=== PATIENT | female | born 1985 | race Caucasian/White ===

== ENCOUNTER → 2017-01-20 | Outpatient (CLI) | payer MEDICAID, OTHER ==
[2017-01-20 10:13] LABS: CH 31.9; CHCM 34.5; HCT 44.6 % (34.0-46.0); HGB 14.8 gm/dL (11.4-16.0); MCH 30.9 pg (25.0-35.0); MCHC 33.2 g/dL (31.0-37.0); Mean Platelet Volume 8.4; RDW 12.7 % (11.5-15.5); WBC 5.7 k/uL (3.8-10.6)
[2017-01-20 10:17] LABS: ALT 67 U/L (9-52); AST 45 U/L (14-36); Alkaline Phosphatase 53 U/L (38-126); Amylase 70 U/L (30-110); Anion Gap 9 mmol/L; Blood Urea Nitrogen 12 mg/dL (7-17); Calcium 9.3 mg/dL (8.4-10.2); Carbon Dioxide 28 mmol/L (22-30); Chloride 104 mmol/L (98-107); Cholesterol 224 mg/dL (<200); Glucose 87 mg/dL (74-99); HDL Cholesterol 64 mg/dL (40-60); Non-African American GFR(MDRD) >60 (>60 ml/min/1.73 sqM); Potassium 4.5 mmol/L (3.5-5.1); Sodium 141 mmol/L (137-145); Total Bilirubin 0.4 mg/dL (0.2-1.3); Total Protein 7.4 g/dL (6.3-8.2); Triglycerides 90 mg/dL (<150)
[2017-01-21 14:43] LABS: Gliadin AB IgA, Deaminated 7 UNITS (<20); Gliadin AB IgG, Deaminated 3 UNITS (<20)
== END ==
LOC: LABWHC1 08:51
PROVIDERS: ATTEND Physician Assistant
DX: R11.0 Nausea (principal); R19.7 Diarrhea, unspecified; E03.9 Hypothyroidism, unspecified; R53.83 Other fatigue
CPT/HCPCS: 36415; 80053; 80061; 82150; 83516; 83690; 84439; 84443; 85027

== ENCOUNTER → 2017-02-22 | Outpatient (CLI) | payer MEDICAID, OTHER ==
--- NOTE | 2017-02-22 14:10 | CT ---
EXAMINATION TYPE: CT abdomen pelvis w con DATE OF EXAM: 02/22/2017 2:04 PM COMPARISON: NONE HISTORY: Abdomen pain and bloating CT DLP: 524.2 mGycm CONTRAST: CT scan of the abdomen and pelvis is performed with Oral Contrast and with IV Contrast, patient injec talat with 100 mL of Omnipaque 300. FINDINGS: LUNG BASES-: No visible nodule. No infiltrate. LIVER/GB: No calcified gallstones. No space occupying hepatic lesion. Biliary tree is of normal ca liber. PANCREAS: No inflammation. No distinct mass. SPLEEN: No splenic enlargement. No lesion seen. ADRENALS: No nodule. No thickening. KIDNEYS/BLADDER: No hydronephrosis. 2 nonobstructing calculi are seen within the lower pole of the l eft kidney measuring 4 and 3 mm respectively. No right-sided calculi are evident. No disctinct renal mass. Urinary bladder grossly unremarkable. BOWEL: Normal appendix. Normal bowel caliber. No inflammation. GENITAL ORGANS: No gross abnormality. LYMPH NODES: No greater than 1cm abdominal or pelvic lymph nodes are appreciated. AORTA: No significant abnormality. OSSEOUS STRUCTURES: No significant abnormality is seen. OTHER: No significant additional abnormality is seen. IMPRESSION: 1. Mild fecal stasis. 2. Nonobstructing left-sided nephrolithiasis.
== END | disposition home or self-care (01) ==
LOC: RADCTMAIN 11:45
PROVIDERS: ATTEND Family Medicine
DX: N20.0 Calculus of kidney (principal)
CPT/HCPCS: 74177; Q9967

== ENCOUNTER → 2017-03-17 | Outpatient (CLI) | payer MEDICAID, OTHER ==
[2017-03-17 12:17] LABS: ALT 73 U/L (9-52); AST 54 U/L (14-36); Alkaline Phosphatase 56 U/L (38-126); Anion Gap 9 mmol/L; Blood Urea Nitrogen 13 mg/dL (7-17); Calcium 9.3 mg/dL (8.4-10.2); Carbon Dioxide 27 mmol/L (22-30); Chloride 103 mmol/L (98-107); Glucose 78 mg/dL (74-99); Potassium 4.1 mmol/L (3.5-5.1); Sodium 139 mmol/L (137-145); Total Bilirubin 0.5 mg/dL (0.2-1.3); Total Protein 7.3 g/dL (6.3-8.2)
[2017-03-17 12:18] LABS: Non-African American GFR(MDRD) >60 (>60 ml/min/1.73 sqM)
[2017-03-17 17:37] LABS: Clam IgE <0.10 kU/L; Peanut IgE <0.10 kU/L; Scallop IgE <0.10 kU/L; Soybean IgE <0.10 kU/L
[2017-03-18 14:19] LABS: Alternaria alternata IgE <0.35 kU/L (<0.35); Asperg. fumagatus IgE <0.35 kU/L (<0.35); Asperg. fumagatus IgE Class CLASS 0; Birch(Com.Silvr) IgE Class CLASS 0; Cat Epith & Dander IgE <0.35 kU/L (<0.35); Cat Epith & Dander IgE Class CLASS 0; Clad herbarum IgE <0.35 kU/L (<0.35); Clad herbarum IgE Class CLASS 0; Common Ragweed IgE Class CLASS 0; Dermato. Pteronyssinus Class CLASS 0; Dermato. Pteronyssinus IgE <0.35 kU/L (<0.35); Dermato. farinae IgE <0.35 kU/L (<0.35); Dermato. farinae IgE Class CLASS 0; IgE (Allergen) 6.9 IU/mL (<114.0); Maple (Box Elder) IgE <0.35 kU/L (<0.35); Maple (Box Elder) IgE Class CLASS 0; Mountain Cedar IgE <0.35 kU/L (<0.35); Mountain Cedar IgE Class CLASS 0; Mouse Urine IgE Class CLASS 0; Mouse Urine Proteins,IgE <0.35 kU/L (<0.35); Mulberry IgE Class CLASS 0; Nettle IgE <0.35 kU/L (<0.35); Nettle IgE Class CLASS 0; Oak IgE <0.35 kU/L (<0.35); Penicillium notatum IgE Class CLASS 0; Rough Marshelder IgE <0.35 kU/L (<0.35); Rough Marshelder IgE Class CLASS 0; Timothy Grass IgE <0.35 kU/L (<0.35); Timothy Grass IgE Class CLASS 0; White Ash IgE Class CLASS 0
== END | disposition home or self-care (01) ==
LOC: LABWHC1 11:19
PROVIDERS: ATTEND Physician Assistant
DX: J30.9 Allergic rhinitis, unspecified (principal); R94.5 Abnormal results of liver function studies; J32.9 Chronic sinusitis, unspecified
CPT/HCPCS: 36415; 80053; 82785; 86003

== ENCOUNTER → 2017-03-25 | Outpatient (CLI) | payer MEDICAID, OTHER ==
[2017-03-25 14:59] LABS: Hepatitis B Surface Ag Index 0.06; Hepatitis C Virus IgG Ab Negative (Negative); Hepatitis C Virus IgG Index 0.03
[2017-03-25 15:00] LABS: Hepatitis B Core IgM Index 0.02
== END | disposition home or self-care (01) ==
LOC: LABWHC1 08:50
PROVIDERS: ATTEND Physician Assistant
DX: R19.7 Diarrhea, unspecified (principal); R10.9 Unspecified abdominal pain; R14.0 Abdominal distension (gaseous); R79.89 Other specified abnormal findings of blood chemistry
CPT/HCPCS: 36415; 80074; 82378; 86301

== ENCOUNTER 2017-04-14 07:31 | Day surgery (SDC) | payer MEDICAID, OTHER ==
[2017-04-12 11:32] VITALS: BMI 24.2
[~2017-04-14 07:31] MED LIST: LACTATED RINGERS 1,000 ML IV SCH
[2017-04-14 08:03] VITALS: RESP 16; TEMP 97
[2017-04-14] MEDS ORDERED: LIDOCAINE 1% 20 ML VIAL (10MG/ML) FOR IV START INTRADERMA ONE (08:14)
[2017-04-14 08:17] LABS: Glucose,Whole Blood 86 mg/dL (75-99)
[2017-04-14] MEDS ORDERED: ONDANSETRON 4 MG/2 ML VIAL IVP ONE (08:17)
[2017-04-14] MEDS ORDERED: PROPOFOL 10 MG/ML 20 ML VIAL IV ONE (08:19)
[2017-04-14] MEDS ORDERED: LIDOCAINE 1% INJ 10MG/ML (20 ML MDV) ONE (08:19)
--- NOTE | 2017-04-14 08:44 | P.OP ---
Date of Procedure: 04/14/17 Preoperative Diagnosis: Change in bowel habits Postoperative Diagnosis: Fairly normal colonoscopy. Possible irritable bowel syndrome. Procedure(s) Performed: Implants: Anesthesia: MAC Surgeon: Navjot Manning Estimated Blood Loss (ml): 0 Pathology: none sent Condition: stable Disposition: same day Indications for Procedure: Change in bowel habits with the irregular stools with the constipation followed by some loose stools. Right upper quadrant pain. Ultrasound and HIDA scan were negative. Direct visualization of the colon was recommended and informed consent was obtained. Operative Findings: Fairly normal colonoscopy. Description of Procedure: With the patient in the left lateral position rectal digital examination was normal there no palpable masses. The video colonoscope was inserted transanally and advanced all the way to the cecum which was entered and well visualized colon was a little tortuous. The mucosa were thoroughly examined. Findings fairly normal colonoscopy. No polyps neoplasms or any mucosal abnormalities were noted. Suspect patient has IBS. Recommendation high fiber diet. May benefit from a fiber supplement daily. Follow-up colonoscopy about 15 years or so since she has no high-risk factors for: Colon ca.
[2017-04-14 09:15] VITALS: BP 117/76; PULSE 50
== END 2017-04-14 09:18 | disposition home or self-care (01) ==
LOC: ORWHC2ENDO 07:31
PROVIDERS: ATTEND Surgery
DX: K59.00 Constipation, unspecified (principal); R10.11 Right upper quadrant pain; E07.9 Disorder of thyroid, unspecified; Q43.8 Other specified congenital malformations of intestine; Z79.899 Other long term (current) drug therapy
CPT/HCPCS: 81025; 45378; J2405; J2001; J2704

== ENCOUNTER → 2017-07-20 | Outpatient (CLI) | payer MEDICAID | END | disposition home or self-care (01) | LOC: LABWHC1 11:40 | PROVIDERS: ATTEND Obstetrics & Gynecology | DX: N92.6 Irregular menstruation, unspecified (principal) | CPT/HCPCS: 36415; 84702 ==

== ENCOUNTER → 2017-08-25 | Outpatient (CLI) | payer MEDICAID ==
[2017-08-25 12:22] LABS: CH 33.9; CHCM 34.7; HCT 42.7 % (34.0-46.0); HDW 2.52; HGB 14.4 gm/dL (11.4-16.0); MCH 33.1 pg (25.0-35.0); MCHC 33.7 g/dL (31.0-37.0); MCV 98.2 fL (80.0-100.0); RBC 4.34 m/uL (3.80-5.40); RDW 13.9 % (11.5-15.5); WBC 6.4 k/uL (3.8-10.6)
[2017-08-25 12:37] LABS: ALT 38 U/L (9-52); AST 32 U/L (14-36); Alkaline Phosphatase 60 U/L (38-126); Amylase 67 U/L (30-110); Anion Gap 11 mmol/L; Blood Urea Nitrogen 10 mg/dL (7-17); Calcium 9.5 mg/dL (8.4-10.2); Carbon Dioxide 25 mmol/L (22-30); Chloride 105 mmol/L (98-107); GGT 48 U/L (12-43); Glucose 91 mg/dL (74-99); Non-African American GFR(MDRD) >60 (>60 ml/min/1.73 sqM); Potassium 4.1 mmol/L (3.5-5.1); Sodium 141 mmol/L (137-145); Total Bilirubin 0.4 mg/dL (0.2-1.3); Total Protein 7.4 g/dL (6.3-8.2)
== END | disposition home or self-care (01) ==
LOC: LABWHC1 11:57
PROVIDERS: ATTEND Family Medicine
DX: R74.8 Abnormal levels of other serum enzymes (principal)
CPT/HCPCS: 36415; 80053; 82150; 82977; 84260; 84443; 84481; 85027

== ENCOUNTER → 2017-12-08 | Outpatient (CLI) | payer MEDICAID ==
[2017-12-08 15:47] LABS: HCT 35.1 % (34.0-46.0); MCH 31.3 pg (25.0-35.0); MCHC 34.2 g/dL (31.0-37.0); MCV 91.5 fL (80.0-100.0); Mean Platelet Volume 7.2; Platelet Count 217 k/uL (150-450); RBC 3.84 m/uL (3.80-5.40); RDW 13.1 % (11.5-15.5); WBC 9.6 k/uL (3.8-10.6)
[2017-12-08 15:49] LABS: Glucose 127 mg/dL (74-99)
[2017-12-08 16:05] LABS: T4, Free (Free Thyroxine) 0.94 ng/dL (0.78-2.19)
== END | disposition home or self-care (01) ==
LOC: LABWHC1 15:07
PROVIDERS: ATTEND Obstetrics & Gynecology
DX: Z34.81 Encounter for supervision of other normal pregnancy, first trimester (principal); Z3A.00 Weeks of gestation of pregnancy not specified
CPT/HCPCS: 36415; 82565; 82947; 84439; 84443; 85027; 86762; 86780; 86850; 86900; 86901; 87340

== ENCOUNTER → 2018-03-09 | Outpatient (CLI) | payer MEDICAID ==
[2018-03-09 10:11] LABS: HCT 30.7 % (34.0-46.0); HGB 10.5 gm/dL (11.4-16.0); MCH 32.3 pg (25.0-35.0); MCHC 34.3 g/dL (31.0-37.0); MCV 94.4 fL (80.0-100.0); Mean Platelet Volume 8.2; Platelet Count 231 k/uL (150-450); RBC 3.26 m/uL (3.80-5.40); RDW 14.5 % (11.5-15.5); WBC 8.5 k/uL (3.8-10.6)
== END ==
LOC: LABWHC1 08:41
PROVIDERS: ATTEND Obstetrics & Gynecology
DX: Z34.82 Encounter for supervision of other normal pregnancy, second trimester (principal)
CPT/HCPCS: 36415; 82950; 85027

== ENCOUNTER 2018-05-03 14:45 | Outpatient (CLI) | payer MEDICAID ==
[2018-05-03 16:02] LABS: Basophils % (A) 0 %; Eosinophils # (A) 0.1 k/uL (0-0.7); Eosinophils % (A) 2 %; HGB 11.4 gm/dL (11.4-16.0); Lymphocytes # (A) 1.1 k/uL (1.0-4.8); Lymphocytes % (A) 17 %; MCH 34.1 pg (25.0-35.0); MCHC 36.7 g/dL (31.0-37.0); MCV 93.1 fL (80.0-100.0); Mean Platelet Volume 8.9; Monocytes # (A) 0.4 k/uL (0-1.0); Monocytes % (A) 6 %; Neutrophils % (A) 74 %; Platelet Count 128 k/uL (150-450); RBC 3.33 m/uL (3.80-5.40); RDW 13.9 % (11.5-15.5); WBC 6.8 k/uL (3.8-10.6)
[2018-05-03 16:07] LABS: Amorphous Sediment,Urine Rare /hpf; Appearance,Urine Cloudy (Clear); Bacteria,Urine Occasional /hpf; Bilirubin,Urine Negative (Negative); Blood,Urine Trace (Negative); Color,Urine Light Yellow; Glucose,Urine (UA) Negative (Negative); Ketones,Urine Negative (Negative); Leukocyte Esterase,Urine Moderate (Negative); Mucus,Urine Rare /hpf; Nitrite,Urine Negative (Negative); Protein,Urine Negative (Negative); RBC,Urine 4 /hpf (0-5); Specific Gravity,Urine 1.006 (1.001-1.035); Squamous Epithelial Cell,Urine 4 /hpf (0-4); Urobilinogen,Urine <2.0 mg/dL (<2.0); WBC,Urine 8 /hpf (0-5)
[2018-05-03 16:11] LABS: Uric Acid 4.3 mg/dL (3.7-7.4)
[2018-05-03 16:13] LABS: Creatinine,Urine Random 42.9 mg/dL
[2018-05-03] MEDS ORDERED: LACTATED RINGERS 1,000 ML IV SCH (16:15)
[2018-05-03 16:25] LABS: INR 0.9 (<1.2)
[2018-05-03 16:26] LABS: Prothrombin Time 9.3 sec (9.0-12.0)
[2018-05-03 16:28] LABS: Partial Thromboplastin Time 21.6 sec (22.0-30.0)
[2018-05-03 17:18] VITALS: BP 135/84; PULSE 112; RESP 20; TEMP 98.3
[2018-05-03] MEDS ORDERED: MAGNESIUM SULFATE GM 6 GM in SODIUM CHLORIDE 0.9% 50 ML IVPB ONE (17:23)
[2018-05-03] MEDS ORDERED: BETAMET ACET-BETAMETH SOD PHOS 6 MG/ML VIAL IM SCH (17:30)
--- NOTE | 2018-05-03 17:32 | P.HPOB ---
History of Present Illness H&P Date: 05/03/18 Chief Complaint: headache 32 year old at 32 weeks with di/di twins presents to triage with headache and nausea. 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 In triage her BPs were 130-157/80-99. The labs that were abnormal were platelets 128 and P/C ratio of 512. I believe she has pre-eclampsia and will be transferring her to [facility] on a magnesium sulfate drip after I give her some betamethasone. Review of Systems All systems: negative Constitutional: Denies chills, Denies fever Eyes: denies blurred vision, denies pain Ears, nose, mouth and throat: Denies headache, Denies sore throat Cardiovascular: Denies chest pain, Denies shortness of breath Respiratory: Denies cough Gastrointestinal: Denies abdominal pain, Denies diarrhea, Denies nausea, Denies vomiting Genitourinary: Denies dysuria, Denies hematuria Musculoskeletal: Denies myalgias Integumentary: Denies pruritus, Denies rash Neurological: Denies numbness, Denies weakness Psychiatric: Denies anxiety, Denies depression Endocrine: Denies fatigue, Denies weight change Past Medical History Past Medical History: Thyroid Disorder History of Any Multi-Drug Resistant Organisms: None Reported Past Surgical History: No Surgical Hx Reported Additional Past Surgical History / Comment(s): rectal fissure repair, exploratory laparoscopic proc for endometriosis Past Anesthesia/Blood Transfusion Reactions: No Reported Reaction Additional Past Anesthesia/Blood Transfusion Reaction / Comment(s): no hx blood transfusion Smoking Status: Never smoker Past Drug Use History: None Reported - Past Family History Mother Family Medical History: No Reported History Father Family Medical History: No Reported History Medications and Allergies Home Medications Medication Instructions Recorded Confirmed Type Levothyroxine Sodium [Synthroid] 137 mcg PO QAM 06/06/16 05/03/18 History Cetirizine HCl [Zyrtec] 10 mg PO DAILY 04/12/17 05/03/18 History Fluticasone Nasal [place] [Flonase 1 spray EA NOSTRIL DAILY 04/12/17 05/03/18 History Nasal [place]] Montelukast Sodium [Singulair] 10 mg PO HS 04/12/17 05/03/18 History Vit 40/Iron/Folic/Dha 1 each PO DAILY 04/12/17 05/03/18 History [ Multivitamin-Dha Sfgl] Folic Acid-Vit B Complex-Vit C 1 cap PO DAILY 05/03/18 05/03/18 History [Nephrocaps] Ranitidine HCl [Zantac] 150 mg PO HS 05/03/18 05/03/18 History Allergies Allergy/AdvReac Type Severity Reaction Status Date / Time No Known Allergies Allergy Verified 04/14/17 07:52 Exam Osteopathic Statement: *. No significant issues noted on an osteopathic structural exam other than those noted in the History and Physical/Consult. - Vital Signs Vital signs: Vital Signs Temp Pulse Resp BP Pulse Ox 05/03/18 15:15 98.3 F 112 H 20 135/84 98 Intake and Output 05/03/18 05/03/18 05/03/18 06:59 14:59 22:59 Other: Weight 89.811 kg Heart: RRR Lungs: CTAB Abdomen: soft, nontender Extremeties: neg fatuma's Results Result Diagrams: 05/03/18 15:30 Abnormal Lab Results - Last 24 Hours (Table) 05/03/18 05/03/18 05/03/18 Range/Units 15:30 15:30 15:30 RBC 3.33 L (3.80-5.40) m/uL Hct 31.0 L (34.0-46.0) % Plt Count 128 L (150-450) k/uL APTT (22.0-30.0) sec Urine Appearance Cloudy H (Clear) Urine Blood Trace H (Negative) Ur Leukocyte Esterase Moderate H (Negative) Urine WBC 8 H (0-5) /hpf Amorphous Sediment Rare H (None) /hpf Urine Bacteria Occasional H (None) /hpf Urine Mucus Rare H (None) /hpf U Random Total Protein 22 H (<12) mg/dL 05/03/18 Range/Units 15:30 RBC (3.80-5.40) m/uL Hct (34.0-46.0) % Plt Count (150-450) k/uL APTT 21.6 L (22.0-30.0) sec Urine Appearance (Clear) Urine Blood (Negative) Ur Leukocyte Esterase (Negative) Urine WBC (0-5) /hpf Amorphous Sediment (None) /hpf Urine Bacteria (None) /hpf Urine Mucus (None) /hpf U Random Total Protein (<12) mg/dL Assessment and Plan (1) Pre-eclampsia Current Visit: Yes Status: Acute Code(s): O14.90 - UNSPECIFIED PRE-ECLAMPSIA , UNSPECIFIED TRIMESTER SNOMED Code(s): 684457214 (2) Dichorionic diamniotic twin in third trimester Current Visit: Yes Status: Acute Code(s): O30.043 - TWIN , DICHORIONIC/DIAMNIOTIC, THIRD TRIMESTER SNOMED Code(s): 226641043 Plan: 1. celestone 2. magnesium sulfate 6 gram bolus and 2 grams an hour 3. transfer to [facility] where they have MFM and a NICU.
[2018-05-03] MEDS: MAGNESIUM SULFATE-WATER PMX 20 GM in WATER FOR INJECTION 1 500ML.BAG IV SCH ×2 (18:10→18:19)
== END 2018-05-03 18:45 | disposition home or self-care (01) ==
LOC: FBPOP 14:45
PROVIDERS: ATTEND Obstetrics & Gynecology
DX: O30.043 Twin pregnancy, dichorionic/diamniotic, third trimester (principal); O14.93 Unspecified pre-eclampsia, third trimester; Z3A.32 32 weeks gestation of pregnancy; Z79.899 Other long term (current) drug therapy
CPT/HCPCS: 59025; 99214; 96360; 96361; 96366; 96372; 82570; 84156; 83615; 84450; 84460; 84550; 85025; 85610; 85730; 81001; J0702; J3475 ×2; 99213

== ENCOUNTER 2018-05-09 10:22 | Outpatient (CLI) | payer MEDICAID ==
[2018-05-09 11:19] LABS: Appearance,Urine Cloudy (Clear); Bacteria,Urine Rare /hpf; Bilirubin,Urine Negative (Negative); Blood,Urine Negative (Negative); Color,Urine Light Yellow; Glucose,Urine (UA) Negative (Negative); Ketones,Urine Negative (Negative); Leukocyte Esterase,Urine Small (Negative); Mucus,Urine Rare /hpf; Nitrite,Urine Negative (Negative); PH, Urine 7.5 (5.0-8.0); Protein,Urine Negative (Negative); RBC,Urine 1 /hpf (0-5); Specific Gravity,Urine 1.007 (1.001-1.035); Squamous Epithelial Cell,Urine 4 /hpf (0-4); Urobilinogen,Urine <2.0 mg/dL (<2.0); WBC,Urine 8 /hpf (0-5)
[2018-05-09 11:30] LABS: Basophils % (A) 0 %; Eosinophils # (A) 0.2 k/uL (0-0.7); Eosinophils % (A) 2 %; HCT 31.7 % (34.0-46.0); HGB 11.2 gm/dL (11.4-16.0); Lymphocytes # (A) 1.2 k/uL (1.0-4.8); Lymphocytes % (A) 15 %; MCH 32.8 pg (25.0-35.0); MCHC 35.5 g/dL (31.0-37.0); MCV 92.5 fL (80.0-100.0); Mean Platelet Volume 8.3; Monocytes # (A) 0.4 k/uL (0-1.0); Monocytes % (A) 5 %; Neutrophils # (A) 6.4 k/uL (1.3-7.7); Neutrophils % (A) 76 %; Platelet Count 165 k/uL (150-450); RBC 3.42 m/uL (3.80-5.40); RDW 14.1 % (11.5-15.5); WBC 8.4 k/uL (3.8-10.6)
[2018-05-09 11:38] LABS: ALT 32 U/L (9-52); AST 18 U/L (14-36); Blood Urea Nitrogen 7 mg/dL (7-17); Uric Acid 4.9 mg/dL (3.7-7.4)
[2018-05-09 13:15] VITALS: BP 138/87; PULSE 103; RESP 16; TEMP 98.5
--- NOTE | 2018-05-11 11:36 | P.MSEPDOC ---
Presenting Problems - Arrival Data Date of Arrival on Unit: 05/09/18 Time of Arrival on Unit: 10:22 Mode of Transport: Ambulatory - Complaint OB-Reason for Admission/Chief Complaint: NST Comment: pt here from office for twin nst and pre eclampsia labs. pt was here Tuesday. for preeclampsia . received magnesium at that time and was shipped to [place] where she. was discharged tuesday. Was at followup appt today where blood pressure was 140/70 Medical History - Information : 2 Para: 1 Term: 0 : 1 Abortions: Spontaneous or Elective: 0 Number of Living Children: 1 - Gestational Age Gestational Age by AIMEE (wks/days): 33 Weeks and 0 Days - History Complications: Multiple , Prior Review of Systems - Review of Systems Constitutional: No problems Breast: No problems ENT: No problems Cardiovascular: No problems Respiratory: No problems Gastrointestinal: No problems Genitourinary: No problems Musculoskeletal: No problems Neurological: No problems Skin: No problems Comment: MILD EDEMA 1+ PEDAL BILAT. BILAT PATELLAR REFLEXES +3 PT STATES SAME AT [place]. Vital Signs - Temperature Temperature: 98.5 F Temperature Source: Oral - Pulse Right Radial Pulse Rate: 103 Pulse Assessment Method: Automatic Cuff - Respirations Respiratory Rate: 16 Oxygen Delivery Method: Room Air O2 Sat by Pulse Oximetry: 98 - Blood Pressure Right Arm Blood Pressure: 138/87 Blood Pressure Mean: 104 Blood Pressure Source: Automatic Cuff Medical Screen Scoring (Pre) - Cervical Exam Dilation: Exam Deferred Effacement: Exam Deferred - Uterine Contractions Frequency: > 5 minutes apart = 1 Duration: N/A Intensity: N/A - Maternal Vital Signs Maternal Temperature: N/A Maternal Blood Pressure: N/A Signs of Preeclampsia: Headache = 1 Maternal Respirations: N/A - Pain Assessment Pain Location and Character: Head Pain Scale Used: Numeric (1 - 10) Pain Intensity: 2 Pain Management Goal: 4 Pain Description: Aching Pain Radiation Location: FRONT OF HEAD Pain Frequency: Occasional Pain Duration Units: COMES AND GOES LAST FEW DAYS ALWAYS MILD Pain Behavior: None Exhibited Effects of Pain: NONE Pain Aggravating Factors: Bright Light - Maternal Trauma Maternal Trauma: N/A - Assessment Baseline FHR: A 130 B135 Heart Rate - NICHD Category: Category I (Normal) = 0 NST: Reactive Position: N/A - Total Score Total Score (Pre): 2 - Level of Risk Level of Risk: Low (0-5) Physician Notification (Pre) - Physician Notified Physician Notified Date: 05/09/18 Physician Notified Time: 12:25 Physician/Practitioner Notifed:: DR JOHNSON Spoke With: DR JOHNSON New Order Received: Yes ([facility] HOME) - Notification Comment Comment: SENT FROM OFFICE WITH ORDERS SO CALLED 1 TIME WITH RESULTS Disposition - Disposition OB Disposition: Discharge to home Discharge Date: 05/09/18 Discharge Time: 12:27 I agree with the RN Medical Screening Exam: Yes Risk & Benefit of care provided described in d/c instruction: Yes Diagnosis: TWIN , DICHORIONIC/DIAMNIOTIC, THIRD TRIMESTER
== END 2018-05-09 12:27 | disposition home or self-care (01) ==
LOC: FBPOP 10:22
PROVIDERS: ATTEND Obstetrics & Gynecology
DX: O30.043 Twin pregnancy, dichorionic/diamniotic, third trimester (principal); O14.93 Unspecified pre-eclampsia, third trimester; Z3A.33 33 weeks gestation of pregnancy
CPT/HCPCS: 59025; 81001; 82565; 82570; 83615; 84156; 84450; 84460; 84520; 84550; 85025

== ENCOUNTER 2018-05-15 14:34 | Outpatient (CLI) | payer MEDICAID ==
[2018-05-15 15:03] VITALS: BP 137/75; PULSE 109; RESP 16; TEMP 97.2
[2018-05-15 15:07] LABS: Basophils % (A) 0 %; Eosinophils # (A) 0.1 k/uL (0-0.7); Eosinophils % (A) 1 %; HCT 32.6 % (34.0-46.0); HGB 11.4 gm/dL (11.4-16.0); Lymphocytes # (A) 1.4 k/uL (1.0-4.8); Lymphocytes % (A) 19 %; MCH 32.2 pg (25.0-35.0); MCHC 35.1 g/dL (31.0-37.0); MCV 91.7 fL (80.0-100.0); Mean Platelet Volume 8.3; Monocytes # (A) 0.5 k/uL (0-1.0); Monocytes % (A) 7 %; Neutrophils # (A) 5.1 k/uL (1.3-7.7); Neutrophils % (A) 71 %; Platelet Count 186 k/uL (150-450); RBC 3.55 m/uL (3.80-5.40); RDW 14.1 % (11.5-15.5); WBC 7.1 k/uL (3.8-10.6)
[2018-05-15 15:17] LABS: ALT 29 U/L (9-52); AST 21 U/L (14-36); Blood Urea Nitrogen 6 mg/dL (7-17); LDH 443 U/L (313-618); Uric Acid 4.4 mg/dL (3.7-7.4)
[2018-05-15 15:36] LABS: Appearance,Urine Clear (Clear); Bacteria,Urine Rare /hpf; Bilirubin,Urine Negative (Negative); Blood,Urine Negative (Negative); Color,Urine Light Yellow; Glucose,Urine (UA) Negative (Negative); Ketones,Urine Negative (Negative); Leukocyte Esterase,Urine Small (Negative); Nitrite,Urine Negative (Negative); PH, Urine 7.5 (5.0-8.0); Protein,Urine Negative (Negative); RBC,Urine <1 /hpf (0-5); Specific Gravity,Urine 1.005 (1.001-1.035); Squamous Epithelial Cell,Urine 2 /hpf (0-4); Urobilinogen,Urine <2.0 mg/dL (<2.0); WBC,Urine 7 /hpf (0-5)
--- NOTE | 2018-05-16 00:15 | P.MSEPDOC ---
Presenting Problems - Arrival Data Date of Arrival on Unit: 05/15/18 Time of Arrival on Unit: 14:34 Mode of Transport: Ambulatory - Complaint Comment: sent from office for preeclampsia labwork and Twin NST Medical History - Information : 2 Para: 1 Term: 0 : 1 Abortions: Spontaneous or Elective: 0 Number of Living Children: 1 - Gestational Age Gestational Age by AIMEE (wks/days): 33 Weeks and 6 Days - History Complications: Preeclampsia, Multiple , Prior Review of Systems - Review of Systems Constitutional: No problems Breast: No problems ENT: No problems Cardiovascular: No problems Respiratory: No problems Gastrointestinal: No problems Genitourinary: No problems Musculoskeletal: No problems Neurological: No problems Skin: No problems Vital Signs - Temperature Temperature: 97.2 F Temperature Source: Temporal Artery Scan - Pulse Right Brachial Pulse Rate: 109 Pulse Assessment Method: Automatic Cuff - Respirations Respiratory Rate: 16 Oxygen Delivery Method: Room Air O2 Sat by Pulse Oximetry: 98 - Blood Pressure Right Arm Blood Pressure: 137/75 Blood Pressure Mean: 95 Blood Pressure Source: Automatic Cuff Medical Screen Scoring (Pre) - Cervical Exam Dilation: Exam Deferred - Uterine Contractions Frequency: N/A - Maternal Vital Signs Signs of Preeclampsia: Headache = 1 - Pain Assessment Pain Location and Character: Head Pain Scale Used: Numeric (1 - 10) Pain Intensity: 4 Pain Management Goal: 2 Pain Description: *Acute, Aching Pain Frequency: Constant Pain Duration: 4 Pain Duration Units: Hours Pain Behavior: None Exhibited Pain Aggravating Factors: Bright Light Pharmacological Interventions: PRN Medication Non-Pharmacological Interventions: Darkened Room - Maternal Trauma Maternal Trauma: N/A - Total Score Total Score (Pre): 1 Physician Notification (Pre) - Notification Comment Comment: pt sent from office with script Physician Notification (Post) - Physician Notified Physician Notified Date: 05/15/18 Physician Notified Time: 15:10 Spoke With: Romaine Alvarado Order Received: Yes (discharge) - Notification Comment Comment: sent from office with script Disposition - Disposition OB Disposition: Discharge to home, Written follow up instructions reviewed Discharge Date: 05/15/18 Discharge Time: 15:10 I agree with the RN Medical Screening Exam: Yes Risk & Benefit of care provided described in d/c instruction: Yes Diagnosis: TWIN , DICHORIONIC/DIAMNIOTIC, THIRD TRIMESTER
== END 2018-05-15 15:10 | disposition home or self-care (01) ==
LOC: FBPOP 14:34
PROVIDERS: ATTEND Obstetrics & Gynecology
DX: O30.043 Twin pregnancy, dichorionic/diamniotic, third trimester (principal); Z3A.33 33 weeks gestation of pregnancy
CPT/HCPCS: 59025; 81001; 82565; 83615; 84450; 84460; 84520; 84550; 85025

== ENCOUNTER 2018-05-20 10:20 | Outpatient (CLI) | payer MEDICAID ==
[2018-05-20] MEDS ORDERED: BETAMET ACET-BETAMETH SOD PHOS 6 MG/ML VIAL IM SCH (11:15)
[2018-05-20 12:14] VITALS: BP 140/83; PULSE 106; RESP 16; TEMP 97
--- NOTE | 2018-05-29 23:31 | P.MSEPDOC ---
Presenting Problems - Arrival Data Date of Arrival on Unit: 05/20/18 Time of Arrival on Unit: 10:00 Mode of Transport: Ambulatory - Complaint OB-Reason for Admission/Chief Complaint: Celestone Injection Medical History - Information : 2 Para: 1 Term: 0 : 1 Abortions: Spontaneous or Elective: 0 Number of Living Children: 1 - Gestational Age Gestational Age by AIMEE (wks/days): 34 Weeks and 4 Days - History Complications: Multiple Review of Systems - Review of Systems Constitutional: No problems Breast: No problems ENT: No problems Cardiovascular: No problems Respiratory: No problems Gastrointestinal: No problems Genitourinary: No problems Musculoskeletal: No problems Neurological: No problems Skin: No problems Vital Signs - Temperature Temperature: 97 F Temperature Source: Temporal Artery Scan - Pulse Right Brachial Pulse Rate: 106 Pulse Assessment Method: Automatic Cuff - Respirations Respiratory Rate: 16 Oxygen Delivery Method: Room Air - Blood Pressure Right Arm Blood Pressure: 140/83 Blood Pressure Mean: 102 Blood Pressure Source: Automatic Cuff Medical Screen Scoring (Pre) - Cervical Exam Dilation: Exam Deferred - Uterine Contractions Frequency: N/A Duration: N/A Intensity: N/A - Maternal Vital Signs Maternal Temperature: N/A Maternal Blood Pressure: Systolic >139 = 2 Signs of Preeclampsia: N/A Maternal Respirations: N/A - Maternal Trauma Maternal Trauma: N/A - Assessment Baseline FHR: 135 Heart Rate - NICHD Category: Category I (Normal) = 0 NST: Reactive - Total Score Total Score (Pre): 2 - Level of Risk Level of Risk: Low (0-5) Physician Notification (Pre) - Physician Notified Physician Notified Date: 05/20/18 Physician Notified Time: 10:59 Physician/Practitioner Notifed:: dafne New Order Received: Yes - Notification Comment Comment: reported pt visit to triage for second celestone shot. pt may be discharged with a reactive strip. Disposition - Disposition OB Disposition: Discharge to home Discharge Date: 05/20/18 Discharge Time: 11:25 I agree with the RN Medical Screening Exam: Yes Risk & Benefit of care provided described in d/c instruction: Yes Diagnosis: TWIN , DICHORIONIC/DIAMNIOTIC, THIRD TRIMESTER
== END 2018-05-20 11:25 | disposition home or self-care (01) ==
LOC: FBPOP 10:20
PROVIDERS: ATTEND Obstetrics & Gynecology
DX: O60.03 Preterm labor without delivery, third trimester (principal); Z3A.34 34 weeks gestation of pregnancy
CPT/HCPCS: 59025; 99214; 96372; J0702

== ENCOUNTER 2018-05-23 11:37 | Outpatient (CLI) | payer MEDICAID ==
[2018-05-23 12:09] LABS: Basophils % (A) 0 %; Eosinophils # (A) 0.1 k/uL (0-0.7); Eosinophils % (A) 1 %; HCT 31.8 % (34.0-46.0); HGB 11.1 gm/dL (11.4-16.0); Lymphocytes # (A) 1.2 k/uL (1.0-4.8); Lymphocytes % (A) 19 %; MCH 31.8 pg (25.0-35.0); MCHC 34.9 g/dL (31.0-37.0); MCV 91.3 fL (80.0-100.0); Mean Platelet Volume 10.1; Monocytes # (A) 0.4 k/uL (0-1.0); Monocytes % (A) 7 %; Neutrophils # (A) 4.5 k/uL (1.3-7.7); Neutrophils % (A) 71 %; Platelet Count 133 k/uL (150-450); RBC 3.49 m/uL (3.80-5.40); RDW 14.6 % (11.5-15.5); WBC 6.4 k/uL (3.8-10.6)
[2018-05-23 12:17] LABS: ALT 38 U/L (9-52); AST 27 U/L (14-36); Blood Urea Nitrogen 7 mg/dL (7-17); LDH 422 U/L (313-618)
[2018-05-23 12:25] LABS: Appearance,Urine Clear (Clear); Bilirubin,Urine Negative (Negative); Blood,Urine Negative (Negative); Color,Urine Light Yellow; Glucose,Urine (UA) Negative (Negative); Ketones,Urine Negative (Negative); Leukocyte Esterase,Urine Negative (Negative); Nitrite,Urine Negative (Negative); PH, Urine 7.5 (5.0-8.0); Protein,Urine Negative (Negative); Specific Gravity,Urine 1.004 (1.001-1.035); Urobilinogen,Urine <2.0 mg/dL (<2.0)
[2018-05-23 12:33] LABS: Creatinine,Urine Random 33.5 mg/dL
--- NOTE | 2018-06-02 19:01 | P.MSEPDOC ---
Presenting Problems - Arrival Data Date of Arrival on Unit: 05/23/18 Time of Arrival on Unit: 11:37 Mode of Transport: Ambulatory - Complaint OB-Reason for Admission/Chief Complaint: Observation/Evaluation Comment: Pt sent with script for PIH labs, NST, serial BP. Per script pt does not need to wait for lab results, will take to appt Tuesday at [facility]. Dx Preeclampsia O14.90 Physician Notification (Pre) - Physician Notified Physician Notified Date: 05/23/18 Physician Notified Time: 12:10 Physician/Practitioner Notifed:: Kaelyn Spoke With: Kaelyn - Notification Comment Comment: Advsd Pt of Dr. Beck, sent with script for PIH labs, NST, serial BP. Per script pt does not need to wait for lab results, will take to appt Tuesday at [facility]. Dx Preeclampsia O14.90 Disposition - Disposition OB Disposition: Discharge to home, Written follow up instructions reviewed Discharge Date: 05/23/18 Discharge Time: 12:15 I agree with the RN Medical Screening Exam: Yes Risk & Benefit of care provided described in d/c instruction: Yes Diagnosis: TWIN , DICHORIONIC/DIAMNIOTIC, THIRD TRIMESTER
== END 2018-05-23 12:15 | disposition home or self-care (01) ==
LOC: FBPOP 11:37
PROVIDERS: ATTEND Obstetrics & Gynecology
DX: O30.043 Twin pregnancy, dichorionic/diamniotic, third trimester (principal); O14.93 Unspecified pre-eclampsia, third trimester; Z3A.00 Weeks of gestation of pregnancy not specified
CPT/HCPCS: 59025; 81003; 82565; 82570; 83615; 84156; 84450; 84460; 84520; 84550; 85025

== ENCOUNTER 2018-05-26 21:44 | Outpatient (CLI) | payer MEDICAID ==
[2018-05-26 22:51] VITALS: BP 133/91
--- NOTE | 2018-05-27 07:24 | P.MSEPDOC ---
Presenting Problems - Arrival Data Date of Arrival on Unit: 05/26/18 Time of Arrival on Unit: 21:44 Mode of Transport: Ambulatory - Complaint OB-Reason for Admission/Chief Complaint: Possible Onset of Labor Comment: pt c/o 7-9 contx an hour since around 1930 Medical History - Information : 2 Para: 1 Term: 0 : 1 Abortions: Spontaneous or Elective: 0 Number of Living Children: 1 - Gestational Age Gestational Age by AIMEE (wks/days): 35 Weeks and 3 Days - History Complications: Preeclampsia, Prior Review of Systems - Review of Systems Constitutional: No problems Breast: No problems ENT: No problems Cardiovascular: No problems Respiratory: No problems Gastrointestinal: No problems Genitourinary: No problems Musculoskeletal: No problems Neurological: No problems Skin: No problems Vital Signs - Blood Pressure Right Arm Sitting Blood Pressure: 133/91 Blood Pressure Mean: 105 Blood Pressure Source: Automatic Cuff Medical Screen Scoring (Pre) - Cervical Exam Dilation: 0 cm = 0 Membranes: Intact - Uterine Contractions Frequency: > 5 minutes apart = 1 Duration: N/A Intensity: N/A - Maternal Vital Signs Maternal Temperature: N/A Maternal Blood Pressure: Diastolic > 89 = 1 Signs of Preeclampsia: N/A Maternal Respirations: N/A - Pain Assessment Pain Location and Character: Lower, Abdomen Pain Scale Used: Numeric (1 - 10) Pain Intensity: 0 - Assessment Baseline FHR: 145 Heart Rate - NICHD Category: Category I (Normal) = 0 NST: Reactive Position: N/A Station: N/A - Total Score Total Score (Pre): 2 - Level of Risk Level of Risk: Low (0-5) Physician Notification (Pre) - Physician Notified Physician Notified Date: 05/26/18 Physician Notified Time: 22:25 Physician/Practitioner Notifed:: mahi Spoke With: mahi New Order Received: Yes - Notification Comment Comment: twin a baseline 145, twin b 150. Ordered to d/c home to f/u with jessica Disposition - Disposition OB Disposition: Discharge to home Discharge Date: 05/26/18 Discharge Time: 22:35 I agree with the RN Medical Screening Exam: Yes Risk & Benefit of care provided described in d/c instruction: Yes Diagnosis: FALSE LABOR BEFORE 37 COMPLETED WEEKS OF GEST, THIRD TRI
== END 2018-05-26 22:35 | disposition home or self-care (01) ==
LOC: FBPOP 21:44
PROVIDERS: ATTEND Obstetrics & Gynecology
DX: O47.03 False labor before 37 completed weeks of gestation, third trimester (principal); Z3A.35 35 weeks gestation of pregnancy
CPT/HCPCS: 59025; 99213

== ENCOUNTER 2018-06-02 05:59 | Inpatient (IN) | payer MEDICAID ==
[2018-05-29 16:06] VITALS: BMI 32.4
[2018-06-02] MEDS ORDERED: CITRIC ACID-SODIUM CITRATE 15 ML CUP PO ONE (06:16)
[2018-06-02] MEDS: LACTATED RINGERS 1,000 ML IV SCH ×2 (06:18→19:34)
[2018-06-02 06:34] LABS: Basophils % (A) 0 %; Eosinophils # (A) 0.1 k/uL (0-0.7); Eosinophils % (A) 2 %; HCT 34.6 % (34.0-46.0); Lymphocytes # (A) 1.7 k/uL (1.0-4.8); Lymphocytes % (A) 23 %; MCH 31.5 pg (25.0-35.0); MCHC 34.7 g/dL (31.0-37.0); MCV 90.9 fL (80.0-100.0); Mean Platelet Volume 8.5; Monocytes # (A) 0.5 k/uL (0-1.0); Monocytes % (A) 6 %; Neutrophils # (A) 4.8 k/uL (1.3-7.7); Neutrophils % (A) 66 %; Platelet Count 155 k/uL (150-450); RDW 14.8 % (11.5-15.5); WBC 7.3 k/uL (3.8-10.6)
[2018-06-02] MEDS ORDERED: ceFAZolin IN SWFI 2 GM/20 ML SYRINGE IVP STA (07:13)
[2018-06-02 07:15] LABS: INR 0.9 (<1.2); Partial Thromboplastin Time 22.2 sec (22.0-30.0); Prothrombin Time 9.4 sec (9.0-12.0)
[2018-06-02] MEDS ORDERED: OXYTOCIN 10 UNIT/ML 1 ML VIAL ONE (08:02)
[2018-06-02] MEDS ORDERED: KETOROLAC 30 MG/ML 1 ML VIAL ONE (08:02)
[2018-06-02] MEDS ORDERED: LACTATED RINGERS 1,000 ML BAG IV ONE (08:02)
[2018-06-02] MEDS ORDERED: ONDANSETRON 4 MG/2 ML VIAL ONE (08:02)
[2018-06-02] MEDS ORDERED: MORPHINE SULFATE (PF) 0.3 MG/0.3 ML SYR ONE (08:02)
[2018-06-02] MEDS ORDERED: NALBUPHINE 10 MG/ML VIAL (10ML MDV) ONE (08:02)
[2018-06-02] MEDS ORDERED: NALOXONE 0.4 MG/ML 1 ML VIAL IV PRN (08:26)
[2018-06-02] MEDS ORDERED: HYDROmorphone 1 MG/ML 1 ML SYRINGE IVP PRN (08:26)
[2018-06-02] MEDS ORDERED: NALBUPHINE 10 MG/ML VIAL (10ML MDV) IV PRN (08:26)
[2018-06-02] MEDS ORDERED: LANOLIN CREAM 5 GM TUBE TOPICAL PRN (08:53)
[2018-06-02] MEDS ORDERED: diphenhydrAMINE 50 MG/ML 1 ML VIAL IVP PRN ×2 (08:53)
[2018-06-02] MEDS ORDERED: diphenhydrAMINE 25 MG CAP PO PRN (08:53)
[2018-06-02] MEDS ORDERED: diphenhydrAMINE 50 MG CAP PO PRN (08:53)
[2018-06-02] MEDS ORDERED: METOCLOPRAMIDE 5 MG/ML 2 ML VIAL IVP PRN (08:53)
[2018-06-02] MEDS ORDERED: ONDANSETRON 4 MG/2 ML VIAL IVP PRN (08:53)
[2018-06-02] MEDS ORDERED: ZOLPIDEM 5 MG TAB PO PRN (08:53)
[2018-06-02] MEDS ORDERED: OXYTOCIN 20 UNITS/1000 ML NS 1,000 ML IV SCH (09:00)
--- NOTE | 2018-06-02 13:08 | P.OP ---
Date of Procedure: 06/02/18 Preoperative Diagnosis: 1. at 36 weeks 3 days 2. pre-eclampsia 3. twin gestation 4. family planning Postoperative Diagnosis: 1. at 36 weeks 3 days 2. pre-eclampsia 3. twin gestation 4. family planning Procedure(s) Performed: primary low transverse with tubal ligation Anesthesia: spinal Surgeon: Halina Gavin Email Marketing Intern #1: Patricia Art Estimated Blood Loss (ml): 600 IV fluids (ml): 1,000 Urine output (ml): 100 Pathology: other (placenta) Condition: stable Disposition: floor Operative Findings: viable females A: vertex, Apgars 9,9, weight 4#13oz, B: breech, Apgars 9,9, weight 4#12oz Description of Procedure: Patient was taken to the operating room where spinal anesthesia was found be adequate. She was prepped and draped in normal sterile fashion in dorsal supine position with a leftward tilt. Pfannenstiel skin incision was made the scalpel and carried through to the underlying layer of fascia with the scalpel. Fascia was incised in midline and carried bilaterally with the Thomas scissors. The superior aspect of the fascial incision was grasped with [place] clamps elevated and the underlying rectus muscles dissected off with the Thomas's. Attention was then turned to inferior aspect of same incision which in a similar fashion was grasped tented up and the underlying rectus muscles dissected off with the Thomas's. The rectus muscles were the midline and the peritoneum was identified tented up and entered sharply with the scalpel. The incision was extended superiorly and inferiorly with good visualization of the bladder. The bladder blade was inserted and the vesicouterine peritoneum was incised the Metzen[place]ums then carried bilaterally and bladder flap created digitally. A low transverse incision was then made on the uterus with the scalpel. This was carried bilaterally and digital manner. 's head delivered atraumatically, nose and mouth bulb suctioned, cord clamped and cut, infant handed off to waiting nurses. Apgars 9,9, weight 4 lbs. 13 oz. The second layer bladder was ruptured, B was delivered in radha breech presentation, nose and mouth bulb suctioned, cord clamped and cut, handed off to waiting nurses. Apgars 9, 9, weight 4 lbs. 12 oz. Placenta delivered manually, intact with three-vessel cord. The uterus is exteriorized and cleared of all clots and debris. The uterine incision was closed with 0 Vicryl in a running locked fashion. Second layer of the same sutures used in imbricating fashion to obtain excellent hemostasis. Bladder flap was then reapproximated using 2-0 Vicryl in a running fashion. Both ovaries and tubes appeared normal. The uterus was placed back into the abdomen. The peritoneum was reapproximated using 2-0 Vicryl in a running fashion. The muscles were reapproximated using 2-0 Vicryl in interrupted fashion. The fascia was reapproximated using 0 Vicryl in a running fashion. The subcutaneous tissues closed with 3-0 Vicryl running fashion. The skin was closed yen. Patient tolerated the procedure well, sponge and instrument counts were correct times 2 and she was taken to the recovery room in stable condition.
[2018-06-02] MEDS: SENNOSIDES-DOCUSATE SODIUM 1 EACH TAB PO SCH (19:57)
[2018-06-02] MEDS: KETOROLAC 30 MG/ML 1 ML VIAL IVP PRN (19:58)
[2018-06-02] MEDS: diphenhydrAMINE 50 MG/ML 1 ML VIAL IVP PRN (19:59)
[2018-06-03] MEDS: ACETAMINOPHEN TAB 325 MG TAB PO PRN ×3 (00:06→17:47)
[2018-06-03] MEDS: SIMETHICONE 80 MG CHEWABLE PO PRN ×2 (01:41→19:49)
[2018-06-03] MEDS: KETOROLAC 30 MG/ML 1 ML VIAL IVP PRN ×2 (01:42→07:56)
[2018-06-03] MEDS: diphenhydrAMINE 50 MG/ML 1 ML VIAL IVP PRN (01:43)
[2018-06-03] MEDS: LACTATED RINGERS 1,000 ML IV SCH ×3 (01:43→20:45)
--- NOTE | 2018-06-03 07:34 | P.HPOB ---
History of Present Illness H&P Date: 06/02/18 Chief Complaint: twins, pre-eclampsia 32 year old presents at 36 weeks 3 days for primary low transverse C- section and tubal ligation due to twin gestation, preeclampsia, baby B is in breech presentation. Review of Systems All systems: negative Constitutional: Denies chills, Denies fever Eyes: denies blurred vision, denies pain Ears, nose, mouth and throat: Denies headache, Denies sore throat Cardiovascular: Denies chest pain, Denies shortness of breath Respiratory: Denies cough Gastrointestinal: Denies abdominal pain, Denies diarrhea, Denies nausea, Denies vomiting Genitourinary: Denies dysuria, Denies hematuria Musculoskeletal: Denies myalgias Integumentary: Denies pruritus, Denies rash Neurological: Denies numbness, Denies weakness Psychiatric: Denies anxiety, Denies depression Endocrine: Denies fatigue, Denies weight change Past Medical History Past Medical History: Thyroid Disorder Additional Past Medical History / Comment(s): last steroid May 2018, preeclampsia,hx rectal fissure,. Obstetric history: She has had one vaginal delivery, this daughter has cystic fibrosis. This is her second . She 's had care with me since the first trimester. This is a diamniotic dichorionic twin gestation. She's been followed with maternal medicine as well. At 32 weeks gestation she was diagnosed with preeclampsia. Her blood pressures have remained under control without medication, labs checked twice weekly, she's had biophysical profiles and NSTs twice weekly. The growth is started to fall off in the last ultrasound, and the fluid of baby A is a little low. History of Any Multi-Drug Resistant Organisms: None Reported Past Surgical History: No Surgical Hx Reported Additional Past Surgical History / Comment(s): rectal fissure repair, exploratory laparoscopic proc for endometriosis, LEEP Past Anesthesia/Blood Transfusion Reactions: No Reported Reaction Additional Past Anesthesia/Blood Transfusion Reaction / Comment(s): no hx blood transfusion Past Psychological History: No Psychological Hx Reported Smoking Status: Former smoker Past Alcohol Use History: Rare Additional Past Alcohol Use History / Comment(s): quit smoking 2015,smoked approx 15 yrs <1ppd Past Drug Use History: None Reported - Past Family History Mother Family Medical History: Thyroid Disorder Additional Family Medical History / Comment(s): lump removed from breast Father Family Medical History: No Reported History Medications and Allergies Home Medications Medication Instructions Recorded Confirmed Type Levothyroxine Sodium [Synthroid] 137 mcg PO QAM 06/06/16 06/02/18 History Cetirizine HCl [Zyrtec] 10 mg PO DAILY 04/12/17 06/02/18 History Fluticasone Nasal [place] [Flonase 1 spray EA NOSTRIL DAILY 04/12/17 06/02/18 History Nasal [place]] Montelukast Sodium [Singulair] 10 mg PO HS 04/12/17 06/02/18 History Vit 40/Iron/Folic/Dha 1 each PO DAILY 04/12/17 06/02/18 History [ Multivitamin-Dha Sfgl] Ranitidine HCl [Zantac] 150 mg PO 1800 05/03/18 06/02/18 History Folic Acid 1 mg PO DAILY 05/29/18 06/02/18 History Allergies Allergy/AdvReac Type Severity Reaction Status Date / Time No Known Allergies Allergy Verified 06/02/18 06:09 Exam Osteopathic Statement: *. No significant issues noted on an osteopathic structural exam other than those noted in the History and Physical/Consult. Vital Signs Temp Pulse Resp BP Pulse Ox 06/03/18 05:56 16 98 06/03/18 04:00 98.3 F 101 H 16 110/54 98 06/03/18 02:00 16 99 06/03/18 00:00 98.3 F 92 16 115/68 99 06/02/18 22:00 16 98 06/02/18 20:00 97.2 F L 102 H 16 126/80 99 06/02/18 18:00 20 98 06/02/18 16:00 98.3 F 94 20 130/70 98 06/02/18 15:00 20 99 06/02/18 14:30 98 06/02/18 13:20 100 16 118/68 06/02/18 13:00 110 H 16 136/72 06/02/18 12:50 87 16 130/76 06/02/18 12:35 100 16 123/58 06/02/18 12:24 113 H 16 118/62 06/02/18 12:15 100 16 117/57 98 06/02/18 11:38 100 20 123/51 98 06/02/18 11:35 16 96/55 06/02/18 10:40 16 06/02/18 10:30 87 16 130/76 06/02/18 09:55 97.4 F L 76 16 124/75 98 06/02/18 09:40 75 16 128/77 98 06/02/18 09:25 82 16 142/85 98 06/02/18 09:10 81 16 125/91 97 06/02/18 08:55 97.4 F L 85 16 152/90 97 Intake and Output 06/02/18 06/03/18 06/03/18 22:59 06:59 14:59 Intake Total 300 700 Output Total 1000 3100 Balance -700 -2400 Intake: IV 700 Lactated Ringers 1,000 ml 700 @ 125 mls/hr IV .Q8H OFELIA Rx#:[id number] Oral 300 Output: Urine 1000 3100 Uretheral ([place]) 500 1100 Other: # Voids 1 Heart: Regular rate and rhythm Lungs: Clear to auscultation bilaterally Abdomen: Soft, nontender Extremities: Negative Homans sign Results Result Diagrams: 06/02/18 06:15 Assessment and Plan (1) Dichorionic diamniotic twin in third trimester Current Visit: No Status: Acute Code(s): O30.043 - TWIN , DICHORIONIC/DIAMNIOTIC, THIRD TRIMESTER SNOMED Code(s): 127342819 (2) Pre-eclampsia Current Visit: No Status: Acute Code(s): O14.90 - UNSPECIFIED PRE-ECLAMPSIA , UNSPECIFIED TRIMESTER SNOMED Code(s): 754468716 (3) Family planning Current Visit: Yes Status: Acute Code(s): Z30.09 - ENCOUNTER FOR OTH GENERAL CNSL AND ADVICE ON CONTRACEPTION SNOMED Code(s): 383377924 Plan: 1. Primary low transverse with tubal ligation
--- NOTE | 2018-06-03 07:37 | P.PNOBGPC ---
Subjective - Subjective Principal diagnosis: Status post primary low transverse POD #! Interval history: Patient seen and examined. After delivery yesterday she did have some uterine atony and passed a few large blood clots. Increase the Pitocin and manual extracted several clots. After this the uterus was adequately contracted and her bleeding slowed. Her pain is under control and she is passing flatus, voiding without difficulty. Patient reports: Reports appetite normal, Reports voiding normally, Reports pain well controlled, Reports ambulating normally [place]: doing well Objective - Vital Signs Latest vital signs: Vital Signs Temp Pulse Resp BP Pulse Ox 06/03/18 05:56 16 98 06/03/18 04:00 98.3 F 101 H 16 110/54 98 06/03/18 02:00 16 99 06/03/18 00:00 98.3 F 92 16 115/68 99 06/02/18 22:00 16 98 06/02/18 20:00 97.2 F L 102 H 16 126/80 99 06/02/18 18:00 20 98 06/02/18 16:00 98.3 F 94 20 130/70 98 06/02/18 15:00 20 99 06/02/18 14:30 98 06/02/18 13:20 100 16 118/68 06/02/18 13:00 110 H 16 136/72 06/02/18 12:50 87 16 130/76 06/02/18 12:35 100 16 123/58 06/02/18 12:24 113 H 16 118/62 06/02/18 12:15 100 16 117/57 98 06/02/18 11:38 100 20 123/51 98 06/02/18 11:35 16 96/55 06/02/18 10:40 16 06/02/18 10:30 87 16 130/76 06/02/18 09:55 97.4 F L 76 16 124/75 98 06/02/18 09:40 75 16 128/77 98 06/02/18 09:25 82 16 142/85 98 06/02/18 09:10 81 16 125/91 97 06/02/18 08:55 97.4 F L 85 16 152/90 97 Intake and Output 06/02/18 06/03/18 06/03/18 22:59 06:59 14:59 Intake Total 300 700 Output Total 1000 3100 Balance -700 -2400 Intake: IV 700 Lactated Ringers 1,000 ml 700 @ 125 mls/hr IV .Q8H [facility] Rx#:[id number] Oral 300 Output: Urine 1000 3100 Uretheral ([place]) 500 1100 Other: # Voids 1 - Exam Lungs: bilateral: normal Chest: Normal S1, Normal S2 Extremities: Present: normal Abdomen: Present: normal appearance, soft. Absent: distention, tenderness Incision: Present: normal, dry, intact Uterus: Present: normal, firm Assessment and Plan (1) Dichorionic diamniotic twin in third trimester Current Visit: No Status: Resolved Code(s): O30.043 - TWIN , DICHORIONIC/DIAMNIOTIC, THIRD TRIMESTER SNOMED Code(s): 881905654 (2) Pre-eclampsia Current Visit: No Status: Resolved Code(s): O14.90 - UNSPECIFIED PRE- ECLAMPSIA, UNSPECIFIED TRIMESTER SNOMED Code(s): 084091854 (3) Family planning Current Visit: Yes Status: Resolved Code(s): Z30.09 - ENCOUNTER FOR OT GENERAL CNSL AND ADVICE ON CONTRACEPTION SNOMED Code(s): 047872517 (4) Status post primary low transverse section Current Visit: Yes Status: Acute Code(s): Z98.891 - HISTORY OF UTERINE SCAR FROM PREVIOUS SURGERY SNOMED Code(s): 958088658 (5) Status post tubal ligation at time of delivery, current hosp Current Visit: Yes Status: Acute Code(s): O80 - ENCOUNTER FOR FULL-TERM UNCOMPLICATED DELIVERY; Z30.2 - ENCOUNTER FOR STERILIZATION SNOMED Code(s): 351360039 Plan: 1. Check CBC today 2. By mouth pain medication 3. Increase ambulation 4. Continue care 5. reg diet
[2018-06-03 07:51] LABS: Basophils % (A) 0 %; Eosinophils # (A) 0.1 k/uL (0-0.7); Eosinophils % (A) 1 %; HCT 20.7 % (34.0-46.0); HGB 7.3 gm/dL (11.4-16.0); Lymphocytes # (A) 0.9 k/uL (1.0-4.8); Lymphocytes % (A) 13 %; MCH 32.6 pg (25.0-35.0); MCHC 35.1 g/dL (31.0-37.0); Mean Platelet Volume 9.7; Monocytes # (A) 0.3 k/uL (0-1.0); Monocytes % (A) 5 %; Neutrophils # (A) 5.6 k/uL (1.3-7.7); Neutrophils % (A) 79 %; Platelet Count 110 k/uL (150-450); RBC 2.23 m/uL (3.80-5.40); RDW 15.6 % (11.5-15.5); WBC 7.1 k/uL (3.8-10.6)
[2018-06-03] MEDS: SENNOSIDES-DOCUSATE SODIUM 1 EACH TAB PO SCH ×2 (07:55→18:48)
[2018-06-03] MEDS: HYDROcodone/APAP 7.5-325MG 1 EACH TAB PO PRN ×3 (10:37→19:50)
--- NOTE | 2018-06-03 12:17 | P.PN ---
Progress Note - Text Anesthesia POD 1. Patient is status post section under spinal anesthesia with intra-thecal preservative free morphine 300 g. Moderate pruritus, Exelon post-op analgesia, and no headache or other complications.
[2018-06-03] MEDS: IBUPROFEN 600 MG TAB PO PRN ×3 (13:10→23:53)
[2018-06-04] MEDS: HYDROcodone/APAP 7.5-325MG 1 EACH TAB PO PRN ×4 (03:11→21:08)
[2018-06-04] MEDS: IBUPROFEN 600 MG TAB PO PRN ×4 (06:26→23:59)
[2018-06-04 17:51] LABS: Basophils % (A) 0 %; Eosinophils # (A) 0.2 k/uL (0-0.7); Eosinophils % (A) 3 %; HCT 21.7 % (34.0-46.0); HGB 7.5 gm/dL (11.4-16.0); Lymphocytes # (A) 1.6 k/uL (1.0-4.8); Lymphocytes % (A) 21 %; MCH 32.4 pg (25.0-35.0); MCHC 34.3 g/dL (31.0-37.0); MCV 94.4 fL (80.0-100.0); Mean Platelet Volume 8.5; Monocytes # (A) 0.3 k/uL (0-1.0); Monocytes % (A) 4 %; Neutrophils # (A) 5.2 k/uL (1.3-7.7); Neutrophils % (A) 70 %; Poikilocytosis Slight; RDW 15.9 % (11.5-15.5); WBC 7.4 k/uL (3.8-10.6)
[2018-06-04 17:57] LABS: Platelet Count 186 k/uL (150-450)
[2018-06-04] MEDS: SENNOSIDES-DOCUSATE SODIUM 1 EACH TAB PO SCH (20:27)
[2018-06-05 01:01] VITALS: RESP 17
[2018-06-05] MEDS: HYDROcodone/APAP 7.5-325MG 1 EACH TAB PO PRN ×2 (03:20→09:23)
[2018-06-05] MEDS: IBUPROFEN 600 MG TAB PO PRN (06:06)
--- NOTE | 2018-06-05 07:49 | P.PNOBGPC ---
Subjective - Subjective Principal diagnosis: S/P 1*LTCS POD #2 Interval history: Patient seen and examined. Denies nausea, vomiting, chest pain, calf pain. She is a little bit short of breath when she walks around the room. Patient reports: Reports appetite normal, Reports voiding normally, Reports pain well controlled, Reports ambulating normally : doing well Objective - Vital Signs Latest vital signs: Vital Signs Temp Pulse Resp BP Pulse Ox 06/05/18 00:00 97.6 F 110 H 17 128/75 98 06/04/18 17:00 98.3 F 116 H 16 136/82 06/04/18 08:00 98.4 F 108 H 20 131/76 98 - Exam Lungs: bilateral: normal Chest: Normal S1, Normal S2 Extremities: Present: normal Abdomen: Present: normal appearance, soft. Absent: distention, tenderness Incision: Present: normal, dry, intact Uterus: Present: normal, firm - Labs Labs: Abnormal Lab Results - Last 24 Hours (Table) 06/04/18 Range/Units 17:32 RBC 2.30 L (3.80-5.40) m/uL Hgb 7.5 L (11.4-16.0) gm/dL Hct 21.7 L (34.0-46.0) % RDW 15.9 H (11.5-15.5) % Assessment and Plan (1) Family planning Current Visit: Yes Status: Resolved Code(s): Z30.09 - ENCOUNTER FOR OTH GENERAL CNSL AND ADVICE ON CONTRACEPTION SNOMED Code(s): 573943689 (2) Status post primary low transverse section Current Visit: Yes Status: Acute Code(s): Z98.891 - HISTORY OF UTERINE SCAR FROM PREVIOUS SURGERY SNOMED Code(s): 582434861 (3) Status post tubal ligation at time of delivery, current hosp Current Visit: Yes Status: Acute Code(s): O80 - ENCOUNTER FOR FULL-TERM UNCOMPLICATED DELIVERY; Z30.2 - ENCOUNTER FOR STERILIZATION SNOMED Code(s): 944124130 Plan: 1. Continue postoperative care 2. If she continues to have worsening symptoms from anemia she made a blood transfusion.
--- NOTE | 2018-06-05 07:51 | P.DS ---
Providers Date of admission: 06/02/18 05:59 Expected date of discharge: 06/05/18 Attending physician: Halina Gavin Primary care physician: Stated None - Discharge Diagnosis(es) (1) Family planning Current Visit: Yes Status: Resolved (2) Status post primary low transverse section Current Visit: Yes Status: Acute (3) Status post tubal ligation at time of delivery, current hosp Current Visit: Yes Status: Acute Hospital Course: Patient seen and examined. Yesterday she was having a little short of breath when she walked around the room but today she is feeling much better. Hemoglobin is 7.5 up from 7.3. She is tolerating her diet, passing flatus, voiding and ambulating without difficulty. Her blood pressures are well controlled 120s to 130s over 80s. She will be discharged home today on [place] and Motrin, also with a prescription for iron and Colace. She'll be seen in my office in 1 week for blood pressure check and incision check. Reviewed signs and symptoms of anemia and preeclampsia. Plan - Discharge Summary Discharge Rx Participant: No New Discharge Prescriptions: New HYDROcodone/APAP 7.5-325MG [[place] 7.5-325] 1 each PO Q4H PRN #18 tab PRN Reason: Severe Pain Ibuprofen [Motrin] 600 mg PO Q6HR PRN #30 tab PRN Reason: Mild Pain Or Fever >= 100.5 No Action Levothyroxine Sodium [Synthroid] 137 mcg PO QAM Vit 40/Iron/Folic/Dha [ Multivitamin-Dha Sfgl] 1 each PO DAILY Montelukast Sodium [Singulair] 10 mg PO HS Fluticasone Nasal [place] [Flonase Nasal [place]] 1 spray EA NOSTRIL DAILY Cetirizine HCl [Zyrtec] 10 mg PO DAILY Ranitidine HCl [Zantac] 150 mg PO 1800 Folic Acid 1 mg PO DAILY Discharge Medication List Levothyroxine Sodium [Synthroid] 137 mcg PO QAM 06/06/16 [History] Cetirizine HCl [Zyrtec] 10 mg PO DAILY 04/12/17 [History] Fluticasone Nasal [place] [Flonase Nasal [place]] 1 spray EA NOSTRIL DAILY 04/12/17 [History] Montelukast Sodium [Singulair] 10 mg PO HS 04/12/17 [History] Vit 40/Iron/Folic/Dha [ Multivitamin-Dha Sfgl] 1 each PO DAILY 04/12/17 [History] Ranitidine HCl [Zantac] 150 mg PO 1800 05/03/18 [History] Folic Acid 1 mg PO DAILY 05/29/18 [History] HYDROcodone/APAP 7.5-325MG [[place] 7.5-325] 1 each PO Q4H PRN #18 tab 06/04/18 [ Rx] Ibuprofen [Motrin] 600 mg PO Q6HR PRN #30 tab 06/04/18 [Rx] Follow up Appointment(s)/Referral(s): Halina Gavin DO [Doctor of Osteopathic Medicine] - 1 Week Discharge Disposition: HOME SELF-CARE
[2018-06-05 08:35] VITALS: BP 117/82; PULSE 103; TEMP 98.2
[2018-06-05] MEDS: SENNOSIDES-DOCUSATE SODIUM 1 EACH TAB PO SCH (08:43)
== END 2018-06-05 11:25 | disposition home or self-care (01) | DRG 765 ==
LOC: 4FBP 05:59
PROVIDERS: ADMIT Obstetrics & Gynecology; ATTEND Obstetrics & Gynecology
PROC: 10D00Z1 Extraction of Products of Conception, Low, Open Approach (ICD-10-PCS; principal; 2018-06-02 08:00)
PROC: 0UB70ZZ Excision of Bilateral Fallopian Tubes, Open Approach (ICD-10-PCS; principal; 2018-06-02 08:00)
DX: O14.94 Unspecified pre-eclampsia, complicating childbirth (principal); O30.043 Twin pregnancy, dichorionic/diamniotic, third trimester; Z37.2 Twins, both liveborn; O32.1XX2 Maternal care for breech presentation, fetus 2; Z3A.36 36 weeks gestation of pregnancy; Z30.2 Encounter for sterilization; Z87.891 Personal history of nicotine dependence; O99.284 Endocrine, nutritional and metabolic diseases complicating childbirth; E03.9 Hypothyroidism, unspecified; Z79.890 Hormone replacement therapy; Z79.51 Long term (current) use of inhaled steroids; Z79.899 Other long term (current) drug therapy; O75.89 Other specified complications of labor and delivery
CPT/HCPCS: 85025; 85610; 85730; 86850; 86900; 86901; 88302; 88307

== ENCOUNTER → 2019-05-04 | Outpatient (CLI) | payer MEDICAID ==
--- NOTE | 2019-05-04 10:51 | US ---
EXAMINATION TYPE: US abdomen limited DATE OF EXAM: 05/04/2019 COMPARISON: CT 02/22/2017 CLINICAL HISTORY: 33-year-old female K43.9 VENTRAL HERNIA. Patient has pain to the left of the umbili cus. She gave to twins 11 months ago, pain ever since. TECHNIQUE: Targeted ultrasound examination along the left periumbilical ventral abdominal region at t he site of patient's pain. FINDINGS: Doctor Osteopathic notes: No sonographic evidence for discrete abdominal wall hernia on this exam. Possible prominent bowel visualized at the patient's area of pain IMPRESSION: 1. No discrete abdominal wall hernia seen in the left periumbilical region of patient's pain. 2. If persistent clinical concern or further evaluation of the deeper tissues/intra-abdominal structu res is desired, CT can be considered.
== END ==
LOC: RADUSWWP 09:04
PROVIDERS: ATTEND Family Medicine
DX: K43.9 Ventral hernia without obstruction or gangrene (principal)
CPT/HCPCS: 76705

== ENCOUNTER → 2019-05-30 | Outpatient (CLI) | payer MEDICAID ==
--- NOTE | 2019-05-30 15:47 | CT ---
EXAMINATION TYPE: CT abdomen pelvis wo con DATE OF EXAM: 05/30/2019 COMPARISON: 02/22/2017 HISTORY: abdominal pain and muscle spasms since giving [address] DLP: 355.8 mGycm Examination of the solid and hollow viscera is limited given the lack of contrast. FINDINGS: LUNG BASES: No evidence for nodule. No evidence for infiltrate. LIVER/GB: The gallbladder is unremarkable. No space-occupying hepatic lesion. PANCREAS: No pancreatic mass identified. No inflammatory process seen. SPLEEN: No evidence for splenomegaly. No intrasplenic lesions seen. ADRENALS: No adrenal nodules identified. No evidence for thickening. KIDNEYS: Findings compatible with medullary sponge kidney. Multiple small renal calculi noted. No opal dence for renal mass. No nephrolithiasis. No hydronephrosis. BOWEL: Appendix has a normal appearance. No evidence of bowel obstruction. No inflammatory process. Lymph nodes: No evidence for adenopathy greater than 1 cm. Abdominal aorta: Atheromatous changes seen. No evidence for aneurysm. Genital organs: Fullness right ovary. Uterus and left ovary are unremarkable. Consider ultrasound cor relation. Other: No significant abnormality. IMPRESSION: 1. Medullary sponge kidney without evidence for obstruction. 2. Fullness of the right ovary. Underlying mass is difficult to exclude. Consider ultrasound correlat ion.
== END | disposition home or self-care (01) ==
LOC: RADCTMAIN 14:44
PROVIDERS: ATTEND Family Medicine
DX: Q61.5 Medullary cystic kidney (principal)
CPT/HCPCS: 74176

== ENCOUNTER → 2019-06-19 | Outpatient (CLI) | payer MEDICAID | END | disposition home or self-care (01) | LOC: LABWHC1 15:17 | PROVIDERS: ATTEND Family Medicine | DX: E03.9 Hypothyroidism, unspecified (principal) | CPT/HCPCS: 36415; 84439; 84443; 86376 ==

== ENCOUNTER → 2019-06-27 | Outpatient (CLI) | payer MEDICAID ==
--- NOTE | 2019-06-28 09:56 | US ---
EXAMINATION TYPE: US transvaginal DATE OF EXAM: 06/27/2019 COMPARISON: NONE CLINICAL HISTORY: N83.201 Cyst of Right Ovary. Right ovarian cyst follow up to cat scan. TECHNIQUE: Transvaginal (TV). EXAM MEASUREMENTS: Uterus: 6.2 x 3.8 x 5.7 cm Endometrial Stripe: 0.3 cm Right Ovary: 4.0 x 2.2 x 3.1 cm Left Ovary: 3.3 x 1.9 x 3.0 cm 1. Uterus: Anteverted wnl 2. Endometrium: wnl 3. Right Ovary: Cystic area seen 2.0 x 1.6 x 2.1cm. 4. Left Ovary: wnl 5. Bilateral Adnexa: wnl 6. Posterior cul-de-sac: wnl Follicles on the bilateral ovaries IMPRESSION: 1. Right ovarian cyst follow-up exam in 6 weeks or following the next normal menstrual period perform ed.
== END | disposition home or self-care (01) ==
LOC: RADUSWWP 16:19
PROVIDERS: ATTEND Family Medicine
DX: N83.201 Unspecified ovarian cyst, right side (principal)
CPT/HCPCS: 76830

== ENCOUNTER → 2019-09-11 | Outpatient (CLI) | payer MEDICAID ==
[2019-09-11 19:56] LABS: T4, Free (Free Thyroxine) 1.3 ng/dL (0.80-1.80)
== END | disposition home or self-care (01) ==
LOC: LABWHC1 12:07
PROVIDERS: ATTEND Family Medicine
DX: E03.9 Hypothyroidism, unspecified (principal)
CPT/HCPCS: 36415; 84439; 84443; 86376

== ENCOUNTER 2019-11-30 12:47 | Emergency (ER) | payer MEDICAID ==
[2019-11-30 12:58] VITALS: RESP 18
[2019-11-30] MEDS ORDERED: SODIUM CHLORIDE 0.9% 1,000 ML IV STA (13:45)
[2019-11-30] MEDS ORDERED: ONDANSETRON 4 MG/2 ML VIAL IVP STA (13:45)
[2019-11-30] MEDS ORDERED: PANTOPRAZOLE 40 MG/10 ML VIAL IVP STA (13:45)
[2019-11-30] MEDS ORDERED: HYDROmorphone 0.5 MG/0.5 ML SYRINGE IVP STA (13:45)
--- NOTE | 2019-11-30 14:19 | ED ---
Abdominal Pain HPI - General Chief Complaint: Abdominal Pain Stated Complaint: Abd pain Time Seen by Provider: 11/30/19 13:20 Source: patient, RN notes reviewed, old records reviewed Mode of arrival: ambulatory Limitations: no limitations - History of Present Illness Initial Comments: 34-year-old female presents today for eval for concern for left-sided abdominal flank pain. Symptoms starting today. History of kidney stones. Denies any vomiting but does feel nauseated. She is currently on her menstrual cycle. - Related Data Home Medications Medication Instructions Recorded Confirmed Levothyroxine Sodium [Synthroid] 137 mcg PO QAM 06/06/16 06/02/18 Cetirizine HCl [Zyrtec] 10 mg PO DAILY 04/12/17 06/02/18 Fluticasone Nasal [place] [Flonase 1 spray EA NOSTRIL DAILY 04/12/17 06/02/18 Nasal [place]] Montelukast Sodium [Singulair] 10 mg PO HS 04/12/17 06/02/18 Vit 40/Iron/Folic/Dha 1 each PO DAILY 04/12/17 06/02/18 [ Multivitamin-Dha Sfgl] Ranitidine HCl [Zantac] 150 mg PO 1800 05/03/18 06/02/18 Folic Acid 1 mg PO DAILY 05/29/18 06/02/18 Previous Rx's Medication Instructions Recorded HYDROcodone/APAP 7.5-325MG [Given 1 each PO Q4H PRN #18 tab 06/04/18 7.5-325] Ibuprofen [Motrin] 600 mg PO Q6HR PRN #30 tab 06/04/18 Docusate [Colace] 100 mg PO BID #60 capsule 06/05/18 Ferrous Sulfate [Feosol] 325 mg PO DAILY #30 tab 06/05/18 HYDROcodone/APAP 5-325MG [Given 1 tab PO Q6HR PRN #10 tab 11/30/19 5-325] Ketorolac [Toradol] 10 mg PO Q6HR #12 tab 11/30/19 Ondansetron Odt [Zofran Odt] 4 mg PO Q8HR PRN #12 tab 11/30/19 Tamsulosin [Flomax] 0.4 mg PO DAILY #7 cap 11/30/19 Allergies Allergy/AdvReac Type Severity Reaction Status Date / Time No Known Allergies Allergy Verified 11/30/19 12:58 Review of Systems ROS Statement: Those systems with pertinent positive or pertinent negative responses have been documented in the HPI. ROS Other: All systems not noted in ROS Statement are negative. Past Medical History Past Medical History: Thyroid Disorder Additional Past Medical History / Comment(s): last steroid May 2018,preeclampsia,hx rectal fissure,. Obstetric history: She has had one vaginal delivery, this daughter has cystic fibrosis. This is her second . She's had care with me since the first trimester. This is a diamniotic dichorionic twin gestation. She's been followed with maternal medicine as well. At 32 weeks gestation she was diagnosed with preeclampsia. Her blood pressures have remained under control without medication, labs checked twice weekly, she's had biophysical profiles and NSTs twice weekly. The growth is started to fall off in the last ultrasound, and the fluid of baby A is a little low. History of Any Multi-Drug Resistant Organisms: None Reported Past Surgical History: Section Additional Past Surgical History / Comment(s): rectal fissure repair,exploratory laparoscopic proc for endometriosis, LEEP Past Anesthesia/Blood Transfusion Reactions: No Reported Reaction Additional Past Anesthesia/Blood Transfusion Reaction / Comment(s): no hx blood transfusion Past Psychological History: No Psychological Hx Reported Smoking Status: Former smoker Past Alcohol Use History: Rare Past Drug Use History: None Reported - Past Family History Mother Family Medical History: Thyroid Disorder Additional Family Medical History / Comment(s): lump removed from breast Father Family Medical History: No Reported History General Exam - General Exam Comments Initial Comments: 34-year-old female. Alert and oriented 3. Limitations: no limitations General appearance: alert, in no apparent distress Head exam: Present: atraumatic, normocephalic, normal inspection Eye exam: Present: normal appearance, PERRL, EOMI. Absent: scleral icterus, conjunctival injection, periorbital swelling ENT exam: Present: normal exam, mucous membranes moist Neck exam: Present: normal inspection. Absent: tenderness, meningismus, lymphadenopathy Respiratory exam: Present: normal lung sounds bilaterally. Absent: respiratory distress, wheezes, rales, rhonchi, stridor Cardiovascular Exam: Present: regular rate, normal rhythm, normal heart sounds. Absent: systolic murmur, diastolic murmur, rubs, gallop, clicks GI/Abdominal exam: Present: soft, tenderness (pain left side ), normal bowel sounds. Absent: distended, guarding, rebound, rigid Extremities exam: Present: normal inspection, full ROM, normal capillary refill. Absent: tenderness, pedal edema, joint swelling, calf tenderness Back exam: Present: normal inspection Neurological exam: Present: alert, oriented X3, CN II-XII intact Psychiatric exam: Present: normal affect, normal mood Skin exam: Present: warm, dry, intact, normal color. Absent: rash Course Vital Signs 11/30/19 11/30/19 12:54 16:38 Temperature 98.7 F 99.1 F Pulse Rate 61 78 Respiratory 18 18 Rate Blood Pressure 125/85 124/87 O2 Sat by Pulse 98 98 Oximetry Medical Decision Making - Medical Decision Making 34-year-old female presented today for left-sided flank pain. She has evidence of hematuria and lab results. Kidney functions remaining within normal limits. No significant leukocytosis. UA shows no signs of infection at this time. Patient CT shows evidence of 8 millimeter stone in left UVJ. Patient was advised that she may need to have this removed with ureteral stent. Patient will be discharged at this time with pain medication, Flomax, Zofran. I discussed Patient follow-up promptly with urology. Discussed return parameters of she has any fever, worsening pain or nausea and vomiting that she should return for reevaluation and possible admission. - Lab Data Result diagrams: 11/30/19 14:18 11/30/19 14:18 Lab Results 11/30/19 11/30/19 11/30/19 Range/Units 14:18 14:18 14:18 WBC 9.2 (3.8-10.6) k/uL RBC 4.84 (3.80-5.40) m/uL Hgb 15.1 (11.4-16.0) gm/dL Hct 43.9 (34.0-46.0) % MCV 90.6 (80.0-100.0) fL MCH 31.2 (25.0-35.0) pg MCHC 34.4 (31.0-37.0) g/dL RDW 12.1 (11.5-15.5) % Plt Count 256 (150-450) k/uL Neutrophils % 88 % Lymphocytes % 7 % Monocytes % 3 % Eosinophils % 2 % Basophils % 1 % Neutrophils # 8.1 H (1.3-7.7) k/uL Lymphocytes # 0.6 L (1.0-4.8) k/uL Monocytes # 0.3 (0-1.0) k/uL Eosinophils # 0.1 (0-0.7) k/uL Basophils # 0.0 (0-0.2) k/uL PT 10.0 (9.0-12.0) sec INR 1.0 (<1.2) APTT 25.7 (22.0-30.0) sec Sodium 139 (137-145) mmol/L Potassium 4.1 (3.5-5.1) mmol/L Chloride 107 (98-107) mmol/L Carbon Dioxide 23 (22-30) mmol/L Anion Gap 9 mmol/L BUN 13 (7-17) mg/dL Creatinine 1.22 H (0.52-1.04) mg/dL Est GFR (CKD-EPI)AfAm 67 (>60 ml/min/1.73 sqM) Est GFR (CKD-EPI)NonAf 58 (>60 ml/min/1.73 sqM) Glucose 101 H (74-99) mg/dL Calcium 9.4 (8.4-10.2) mg/dL Total Bilirubin 0.6 (0.2-1.3) mg/dL AST 33 (14-36) U/L ALT 27 (4-34) U/L Alkaline Phosphatase 58 (38-126) U/L Total Protein 7.6 (6.3-8.2) g/dL Albumin 4.6 (3.5-5.0) g/dL Amylase 67 (30-110) U/L Lipase 131 (23-300) U/L Urine Color Urine Appearance (Clear) Urine pH (5.0-8.0) Ur Specific [place] (1.001-1.035) Urine Protein (Negative) Urine Glucose (UA) (Negative) Urine Ketones (Negative) Urine Blood (Negative) Urine Nitrite (Negative) Urine Bilirubin (Negative) Urine Urobilinogen (<2.0) mg/dL Ur Leukocyte Esterase (Negative) Urine RBC (0-5) /hpf Urine WBC (0-5) /hpf Ur Squamous Epith Cells (0-4) /hpf Urine Mucus (None) /hpf Urine HCG, Qual (Not Detectd) 11/30/19 11/30/19 Range/Units 15:30 15:30 WBC (3.8-10.6) k/uL RBC (3.80-5.40) m/uL Hgb (11.4-16.0) gm/dL Hct (34.0-46.0) % MCV (80.0-100.0) fL MCH (25.0-35.0) pg MCHC (31.0-37.0) g/dL RDW (11.5-15.5) % Plt Count (150-450) k/uL Neutrophils % % Lymphocytes % % Monocytes % % Eosinophils % % Basophils % % Neutrophils # (1.3-7.7) k/uL Lymphocytes # (1.0-4.8) k/uL Monocytes # (0-1.0) k/uL Eosinophils # (0-0.7) k/uL Basophils # (0-0.2) k/uL PT (9.0-12.0) sec INR (<1.2) APTT (22.0-30.0) sec Sodium (137-145) mmol/L Potassium (3.5-5.1) mmol/L Chloride (98-107) mmol/L Carbon Dioxide (22-30) mmol/L Anion Gap mmol/L BUN (7-17) mg/dL Creatinine (0.52-1.04) mg/dL Est GFR (CKD-EPI)AfAm (>60 ml/min/1.73 sqM) Est GFR (CKD-EPI)NonAf (>60 ml/min/1.73 sqM) Glucose (74-99) mg/dL Calcium (8.4-10.2) mg/dL Total Bilirubin (0.2-1.3) mg/dL AST (14-36) U/L ALT (4-34) U/L Alkaline Phosphatase (38-126) U/L Total Protein (6.3-8.2) g/dL Albumin (3.5-5.0) g/dL Amylase (30-110) U/L Lipase (23-300) U/L Urine Color Yellow Urine Appearance Clear (Clear) Urine pH 8.0 (5.0-8.0) Ur Specific [place] 1.020 (1.001-1.035) Urine Protein Trace H (Negative) Urine Glucose (UA) Negative (Negative) Urine Ketones 1+ H (Negative) Urine Blood Moderate H (Negative) Urine Nitrite Negative (Negative) Urine Bilirubin Negative (Negative) Urine Urobilinogen <2.0 (<2.0) mg/dL Ur Leukocyte Esterase Small H (Negative) Urine RBC >182 H (0-5) /hpf Urine WBC 3 (0-5) /hpf Ur Squamous Epith Cells <1 (0-4) /hpf Urine Mucus Occasional H (None) /hpf Urine HCG, Qual Not Detected (Not Detectd) - Radiology Data Radiology results: report reviewed CT shows obstructing calculus and left uterovesical junction with hydronephrosis and hydroureter. Enlarged left kidney and perinephric edema. 5 mm calculus in the posterior left kidney. Multiple renal papillary calcifications could relate to nephrocalcinosis or medullary sponge kidney Disposition Clinical Impression: Left ureteral stone Disposition: HOME SELF-CARE Condition: Good Instructions (If sedation given, give patient instructions): Ureteral Stones (ED) Additional Instructions: Patient has a follow-up with urology. At rest remain hydrated. Follow-up with PCP as well. Return to emergency department if any alarming signs or symptoms occur and cleaning fevers, chills, unable to tolerate medications. Prescriptions: Tamsulosin [Flomax] 0.4 mg PO DAILY #7 cap HYDROcodone/APAP 5-325MG [Given 5-325] 1 tab PO Q6HR PRN #10 tab PRN Reason: Pain Ketorolac [Toradol] 10 mg PO Q6HR #12 tab Ondansetron Odt [Zofran Odt] 4 mg PO Q8HR PRN #12 tab PRN Reason: Nausea Is patient prescribed a controlled substance at d/c from ED?: Yes If prescribed controlled substance>3 days was MAPS reviewed?: Prescribed <3 Days If opioid is for acute pain is fill amount 7 days or less?: Yes If Rx opioid, was Start Talking consent form obtained?: Yes Referrals: Alverto Rey MD [Primary Care Provider] - 1-2 days Hayden Hankins MD [STAFF PHYSICIAN] - 1-2 days Time of Disposition: 17:21
[2019-11-30 14:36] LABS: Basophils % (A) 1 %; Eosinophils # (A) 0.1 k/uL (0-0.7); Eosinophils % (A) 2 %; HCT 43.9 % (34.0-46.0); HGB 15.1 gm/dL (11.4-16.0); Lymphocytes # (A) 0.6 k/uL (1.0-4.8); Lymphocytes % (A) 7 %; MCH 31.2 pg (25.0-35.0); MCHC 34.4 g/dL (31.0-37.0); MCV 90.6 fL (80.0-100.0); Mean Platelet Volume 8.3; Monocytes # (A) 0.3 k/uL (0-1.0); Monocytes % (A) 3 %; Neutrophils # (A) 8.1 k/uL (1.3-7.7); Neutrophils % (A) 88 %; Platelet Count 256 k/uL (150-450); RBC 4.84 m/uL (3.80-5.40); RDW 12.1 % (11.5-15.5); WBC 9.2 k/uL (3.8-10.6)
[2019-11-30 14:48] LABS: Albumin 4.6 g/dL (3.5-5.0); Calcium 9.4 mg/dL (8.4-10.2); Potassium 4.1 mmol/L (3.5-5.1); Total Bilirubin 0.6 mg/dL (0.2-1.3); Total Protein 7.6 g/dL (6.3-8.2)
[2019-11-30 14:49] LABS: Partial Thromboplastin Time 25.7 sec (22.0-30.0)
--- NOTE | 2019-11-30 15:00 | XR ---
EXAMINATION TYPE: XR KUB DATE OF EXAM: 11/30/2019 2:54 PM CLINICAL HISTORY: Abdominal pain with nausea and vomiting. TECHNIQUE: Two Upright KUB images of the abdomen are obtained. COMPARISON: CT abdomen and pelvis May 30, 2019 FINDINGS: Some paucity of bowel gas. Gas is seen in nondistended stomach bubble. Some gas is seen in nondistended small bowel loops in the right lower quadrant. Gas and fecal material seen in nondistend ed cecum. Gas is seen in nondistended rectum overlying pubic symphysis. There is no visceromegaly or pneumoperitoneum appreciated. The lung bases are clear and the osseous structures are intact. Suspect ed 6 mm calculus lower pole left kidney. There is medullary nephrocalcinosis and smaller calculi bila terally in both kidneys noted on CT. IMPRESSION: Overall nonspecific but strongly favor nonobstructive bowel gas pattern. Visualization 6 mm left emilee l calculus with medullary nephrocalcinosis and underlying multiple tiny calculi identified on compari son CT.
[2019-11-30] MEDS ORDERED: KETOROLAC 30 MG/ML 1 ML VIAL IVP STA (15:35)
[2019-11-30] MEDS ORDERED: HYDROmorphone 1 MG/ML 1 ML SYRINGE IVP STA (15:35)
[2019-11-30 15:56] LABS: Appearance,Urine Clear (Clear); Bilirubin,Urine Negative (Negative); Blood,Urine Moderate (Negative); Color,Urine Yellow; Glucose,Urine (UA) Negative (Negative); Ketones,Urine 1+ (Negative); Leukocyte Esterase,Urine Small (Negative); Mucus,Urine Occasional /hpf; Nitrite,Urine Negative (Negative); Protein,Urine Trace (Negative); RBC,Urine >182 /hpf (0-5); Squamous Epithelial Cell,Urine <1 /hpf (0-4); Urobilinogen,Urine <2.0 mg/dL (<2.0); WBC,Urine 3 /hpf (0-5)
[2019-11-30 16:38] VITALS: BP 124/87; PULSE 78; TEMP 99.1
--- NOTE | 2019-11-30 16:50 | CT ---
EXAMINATION TYPE: CT abdomen pelvis wo con DATE OF EXAM: 11/30/2019 COMPARISON: 05/30/2019 HISTORY: Left sided pain with nausea and vomiting. CT DLP: 564.8 mGycm Automated exposure control for dose reduction was used. Multiple axial sections were obtained from the diaphragm to the floor the pelvis without contrast. Lung bases are clear. There is no pleural effusion. Stomach liver spleen pancreas gallbladder appear normal. Bile ducts are not dilated. There are multiple calcifications at the renal papilla bilaterall y at could relate to medullary sponge kidney. The left kidney is large with mild hydronephrosis. Ther e is left side hydroureter. There appears to be 8 mm calculus at the left ureterovesical junction. Th ere is left side periureteral edema. There is no hydronephrosis on the right side. There is no retrop eritoneal adenopathy. Bladder distends smoothly. There is no inguinal hernia. There is no free fluid in the pelvis. Uterus is retroverted. Lumbar vertebra appear intact. Disc spaces are fairly normal. Bony pelvis is intact. The appendix is posterior and appears normal. There is no mesenteric edema or ascites. There is no free air. There is no sign of a bowel obstructio n. There is broad-based umbilical hernia that contains fat. IMPRESSION: Obstructing calculus left ureterovesical junction with hydronephrosis and hydroureter. Enlarged left kidney and mild perinephric edema. 5 mm calculus posterior left kidney. 2 mm calculus lower pole left kidney. Multiple renal papillary calcifications could relate to nephrocalcinosis or medullary sponge kidney.
[2019-11-30] MEDS ORDERED: TAMSULOSIN 0.4 MG CAP.ER.24H PO STA (16:55)
[2019-11-30] MEDS ORDERED: ACET/COD 300 MG/30 MG STARTER PACK 6 TAB BTL PO STA (17:20)
[2019-11-30] MEDS ORDERED: ONDANSETRON 4 MG ODT STARTER PACK 2 TAB BTL PO STA (17:20)
== END 2019-11-30 17:43 | disposition home or self-care (01) ==
LOC: EC 12:47
DX: N13.2 Hydronephrosis with renal and ureteral calculous obstruction (principal); E07.9 Disorder of thyroid, unspecified; Z79.890 Hormone replacement therapy; Z79.51 Long term (current) use of inhaled steroids; Z79.899 Other long term (current) drug therapy; Z87.891 Personal history of nicotine dependence
CPT/HCPCS: 36415; 80053; 82150; 83690; 85025; 85610; 85730; 81001; 81025; 74018; 74176; 99285; 96374; 96375 ×3; 96376; 96361 ×2; J2405; J1885; J1170 ×2; S0119; C9113

== ENCOUNTER → 2020-01-11 | Outpatient (CLI) | payer MEDICAID ==
--- NOTE | 2020-01-11 09:52 | US ---
EXAMINATION TYPE: US kidneys/renal and bladder DATE OF EXAM: 01/11/2020 COMPARISON: CT & US CLINICAL HISTORY: Ureteral and kidney stones. History of recent lithotripsy. EXAM MEASUREMENTS: Right Kidney: 10.9 x 4.2 x 4.7 cm Left Kidney: 10.6 x 6.0 x 4.4 cm Kidneys have appearance of medullary sponge kidneys. Right Kidney: No hydronephrosis or masses seen Left Kidney: No hydronephrosis or masses seen Bladder: wnl Bilateral Jets seen: Yes There is no evidence for hydronephrosis at this point in time. No nephrolithiasis is seen. No rodolfo s are identified. The urinary bladder is anechoic. Bilateral ureteral jets are seen. IMPRESSION: Sonographic appearance suggests medullary sponge kidney as also suggested on the prior CT of 11/30/2019. No hydronephrosis of either kidney.
== END | disposition home or self-care (01) ==
LOC: RADUSWWP 08:50
PROVIDERS: ATTEND Urology
DX: N20.0 Calculus of kidney (principal); N20.1 Calculus of ureter
CPT/HCPCS: 76770

== ENCOUNTER → 2020-05-02 | Outpatient (CLI) | payer MEDICAID ==
--- NOTE | 2020-05-02 16:15 | US ---
EXAMINATION TYPE: US thyroid st tissue head/neck DATE OF EXAM: 05/02/2020 COMPARISON: 01/16/2016 CLINICAL HISTORY: E04.9 nontoxic goiter, unspecified. Goiter GLAND SIZE: Right Lobe: 3.5 x 1.1 x 1.1 cm Overall Parenchyma: homogenous Left Lobe: 3.8 x 1.2 x 1.3 cm Overall Parenchyma: homogeneous Isthmus Thickness: 0.2 cm NODULES RIGHT: # of nodules measured on right: 0 LEFT: # of nodules measured on left: 0 ISTHMUS: # of nodules measured in the isthmus: 0 IMPRESSION: Normal thyroid ultrasound
== END | disposition home or self-care (01) ==
LOC: RADUSWWP 15:32
PROVIDERS: ATTEND Family Medicine
DX: E04.9 Nontoxic goiter, unspecified (principal)
CPT/HCPCS: 76536

== ENCOUNTER → 2020-05-16 | Outpatient (CLI) | payer MEDICAID ==
--- NOTE | 2020-05-16 09:27 | XR ---
EXAMINATION TYPE: XR KUB DATE OF EXAM: 05/16/2020 HISTORY: Pain Comparison: December 14, 2019 Single KUB is submitted for interpretation. Findings: Right renal calculi: None Visualized. Right ureteral calculi: None Visualized. Left renal calculi: Previously noted left renal calculi not well demonstrated on today's study. This could be because of overlying bowel content. Left ureteral calculi: Previously noted left UPJ calculus is not present at this time. Pelvic calcifications: None Visualized. Bowel gas pattern is unremarkable. No free air. No mass effects. IMPRESSION: 1. No calculi seen with certainty at this time.
== END | disposition home or self-care (01) ==
LOC: RADXRMAIN 09:05
PROVIDERS: ATTEND Urology
DX: N20.1 Calculus of ureter (principal)
CPT/HCPCS: 74018

== ENCOUNTER 2020-10-17 07:35 | Day surgery (SDC) | payer MEDICAID ==
[2020-10-15 13:52] VITALS: BMI 23.7
[~2020-10-17 07:35] MED LIST changes: +ACETAMINOPHEN TAB 500 MG TAB PO PRN; +DEXAMETHASONE SOD PHOSPHATE 4 MG/ML 1 ML VIAL IV ONE; +HEPARIN SODIUM,PORCINE 5,000 UNIT/ML 1 ML VIAL SQ PRN; +MIDAZOLAM 2 MG/2 ML VIAL IV PRN; +ONDANSETRON 4 MG/2 ML VIAL IVP ONE; +SCOPOLAMINE 1.5MG/72HR PATCH TRANSDERM ONE
--- NOTE | 2020-10-17 07:53 | P.GSHP ---
History of Present Illness H&P Date: 10/17/20 Chief Complaint: chronic cholecystitis 35-year-old female has been followed in the office. Patient has complaints of bilateral upper quadrant abdominal pains. Left upper quadrant pain almost daily. 5 to be possibly related to underlying nephrolithiasis. Intermittent right upper quadrant pains much more severe. Findings of gallstones recently on ultrasound. Food sometimes aggravates the pain. Recent labs normal. Past Medical History Past Medical History: Skin Disorder, Thyroid Disorder Additional Past Medical History / Comment(s): preeclampsia during with twins, hx rectal fissure, intermittant diarrhea, gallstones, eczema, "mild high cholesterol", hashimotos, hx kidney stones History of Any Multi-Drug Resistant Organisms: None Reported Past Surgical History: Section, Tubal Ligation Additional Past Surgical History / Comment(s): rectal fissure repair,exploratory laparoscopic, LEEP Past Anesthesia/Blood Transfusion Reactions: No Reported Reaction Additional Past Anesthesia/Blood Transfusion Reaction / Comment(s): no hx blood transfusion Smoking Status: Current some day smoker - Past Family History Mother Family Medical History: No Reported History Additional Family Medical History / Comment(s): . Father Family Medical History: No Reported History Medications and Allergies Home Medications Medication Instructions Recorded Confirmed Type Fluticasone Nasal [place] [Flonase 1 spray EA NOSTRIL BID PRN 04/12/17 10/15/20 History Nasal [place]] Cetirizine HCl [Zyrtec] 10 mg PO DAILY 12/12/19 10/15/20 History Multivitamins, Thera [Multivitamin 1 tab PO DAILY 12/12/19 10/15/20 History (formulary)] Ibuprofen 600 mg PO Q8H PRN #30 tab 12/14/19 10/15/20 Rx Levothyroxine Sodium [Synthroid] 150 mcg PO QAM 10/15/20 10/15/20 History Allergies Allergy/AdvReac Type Severity Reaction Status Date / Time No Known Allergies Allergy Verified 10/15/20 13:40 Surgical - Exam Physical exam: General: Well-developed, well-nourished HEENT: Normocephalic, sclerae nonicteric Abdomen: Nontender, nondistended Extremities: No edema Neuro: Alert and oriented Assessment and Plan (1) Chronic cholecystitis Narrative/Plan: 35-year-old female with suspected chronic cholecystitis. We'll proceed with laparoscopic, possible open cholecystectomy at this time. Risks of bleeding, infection, bile leak, bile duct injury, retained common bile duct stone, trocar injury, conversion to an open procedure, hernia, anesthesia related complications were reviewed. The patient understands and wishes to proceed. Current Visit: Yes Status: Acute Code(s): K81.1 - CHRONIC CHOLECYSTITIS SNOMED Code(s): 65807698
[2020-10-17] MEDS ORDERED: LACTATED RINGERS 1,000 ML IV ONE ×2 (08:02→11:19)
[2020-10-17] MEDS ORDERED: BUPIVACAINE (PF) 0.25% 30 ML VIAL SQ ONE ×3 (09:20→09:50)
[2020-10-17] MEDS ORDERED: MIDAZOLAM 2 MG/2 ML VIAL ONE (09:25)
[2020-10-17] MEDS ORDERED: HYDROmorphone (PF) 1 MG/ML ONE (09:25)
[2020-10-17] MEDS ORDERED: ROCURONIUM 10 MG/ML (10 ML VIAL) IV ONE (09:25)
[2020-10-17] MEDS ORDERED: NEOSTIGMINE 1 MG/ML 10 ML VIAL ONE (09:25)
[2020-10-17] MEDS ORDERED: GLYCOPYRROLATE 0.2 MG/ML 2 ML VIAL ONE (09:25)
[2020-10-17] MEDS ORDERED: KETOROLAC 15 MG/ML 1 ML VIAL ONE (09:25)
[2020-10-17] MEDS ORDERED: fentaNYL (PF) 50 MCG/ML 2 ML AMP ONE (09:25)
[2020-10-17] MEDS ORDERED: PROPOFOL 10 MG/ML 20 ML VIAL IV ONE (09:25)
[2020-10-17] MEDS ORDERED: LIDOCAINE 1% INJ 10MG/ML (20 ML MDV) ONE (09:25)
--- NOTE | 2020-10-17 10:43 | P.OP ---
Date of Procedure: 10/17/20 Procedure(s) Performed: PREOPERATIVE DIAGNOSIS: Chronic cholecystitis POSTOPERATIVE DIAGNOSIS: Same, intra-abdominal adhesions PROCEDURE: Laparoscopic cholecystectomy with lysis of adhesions SURGEON: Layne EBL: Minimal see anesthesia record ANESTHESIA: Gen. COMPLICATIONS: None OPERATIVE PROCEDURE: The patient was brought and placed on the operating room table in the supine position. The patient was placed under general anesthesia at that time. The abdomen was prepped and draped in the usual sterile fashion. A small vertical infraumbilical incision was made. The fascia was grasped with the Nova forceps. The fascia was retracted anteriorly. The Veress needle was advanced into the peritoneal cavity. The saline drop test was normal. Insufflation took place up to 15 mmHg. A 5 mm optical trocar was advanced and the peritoneal cavity. The patient had loose adhesions between the omentum and the midline extending from the supraumbilical region involving both right and left lower quadrants. An additional 5 mm trocar was placed in the lateral aspect of the right upper quadrant and through that I was able to lyse adhesions to the umbilical site. This allowed visualization of the right upper quadrant well. An additional 5 mm trocar was placed in the right upper quadrant as well as a 12 m trocar in the epigastrium. The gallbladder was retracted superiorly and laterally. The peritoneum overlying the infundibulum was bluntly dissected. The patient's cystic duct was visualized. The junction between the cystic duct common and hepatic duct was identified. The cystic duct was then divided after placement of 3 12 mm clips on the patient's side and one on the specimen side. The cystic artery was identified and clipped as well. A small vessel was seen along the gallbladder fossa and clipped as well. The gallbladder was then removed from the liver bed using electrocautery. The gallbladder was then removed from the epigastric trocar site with an Endo Catch bag. The gallbladder fossa was irrigated with saline. There was no evidence of any bleeding or biliary drainage seen. The fascia at the 12 millimeter site was closed using a Renato-Peggy 0 Vicryl stitch. The trochars were then removed. The skin at all 4 sites was closed using a 4-0 Monocryl stitch. Skin glue was utilized on the incision sites. At the end of this procedure the sponge and needle counts were correct. DISPOSITION: Stable to the recovery room
[2020-10-17 10:48] VITALS: TEMP 96.8
[2020-10-17] MEDS: HYDROmorphone 0.5 MG/0.5 ML SYRINGE IVP PRN ×2 (11:03→11:08)
[2020-10-17 11:52] VITALS: RESP 16
[2020-10-17] MEDS ORDERED: ACETAMINOPHEN TAB 325 MG TAB PO SCH (12:00)
[2020-10-17 12:09] VITALS: BP 110/60; PULSE 67
[2020-10-17] MEDS ORDERED: IBUPROFEN 600 MG TAB PO SCH (15:00)
== END 2020-10-17 12:47 ==
LOC: OR 07:35
PROVIDERS: ATTEND Surgery
DX: K81.1 Chronic cholecystitis (principal); K66.0 Peritoneal adhesions (postprocedural) (postinfection); E78.00 Pure hypercholesterolemia, unspecified; E06.3 Autoimmune thyroiditis; L30.9 Dermatitis, unspecified; F17.200 Nicotine dependence, unspecified, uncomplicated; Z87.59 Personal history of other complications of pregnancy, childbirth and the puerperium; Z98.51 Tubal ligation status; Z98.891 History of uterine scar from previous surgery; Z87.442 Personal history of urinary calculi; Z98.890 Other specified postprocedural states; Z79.899 Other long term (current) drug therapy; Z79.890 Hormone replacement therapy; Z83.49 Family history of other endocrine, nutritional and metabolic diseases; Z82.49 Family history of ischemic heart disease and other diseases of the circulatory system; Z83.3 Family history of diabetes mellitus
CPT/HCPCS: 47562; 81025; 88304; J2250; J1644; J1100; J2710; J0690; J2405; J2001; J3010; J1170 ×2; J1885; J2704

== ENCOUNTER → 2021-01-07 | Outpatient (CLI) | payer MEDICAID ==
--- NOTE | 2021-01-07 12:17 | US ---
EXAMINATION TYPE: US abdomen complete DATE OF EXAM: 01/07/2021 COMPARISON: 06/06/2020 CLINICAL HISTORY: 35-year-old female R10.9 abdominal pain. Intermittent LUQ pain x 5 months, occasion al nausea, history of cholecystectomy TECHNIQUE: Multiple sonographic images of the abdomen are obtained. FINDINGS: EXAM MEASUREMENTS: Liver Length: 14.9 cm CBD: 0.5 cm Spleen: 10.5 cm Right Kidney: 9.0 x 3.9 x 4.7 cm Left Kidney: 9.6 x 5.2 x 4.6 cm Pancreas: Only portions of the pancreatic body are visualized. Remainder is obscured by bowel gas sh adowing. Liver: wnl Gallbladder: surgically absent Evidence for sonographic Mercado's sign: no CBD: wnl Spleen: wnl Right Kidney: Echogenic medullary pyramids. No hydronephrosis Left Kidney: Echogenic medullary pyramid. Additionally, there is a 3 mm echogenic focus at the lower pole. No hydronephrosis. Upper IVC: wnl Abd Aorta: wnl IMPRESSION: 1. A 3 mm nonobstructive left renal calculus. No hydronephrosis. 2. Bilateral medullary nephrocalcinosis. Findings may relate to medullary sponge kidney. Other differ ential considerations include hyperparathyroidism, RTA type I, hypervitaminosis D, milk alkali syndro me, sarcoidosis, hyper-/hypothyroidism, and other pathologic hypercalcemic or hypercalciuric states. Clinically correlate. 3. Status post cholecystectomy. No biliary ductal dilatation.
== END ==
LOC: RADUSWWP 08:50
PROVIDERS: ATTEND Family Medicine
DX: E83.59 Other disorders of calcium metabolism (principal); N20.0 Calculus of kidney; N29 Other disorders of kidney and ureter in diseases classified elsewhere; Z90.49 Acquired absence of other specified parts of digestive tract
CPT/HCPCS: 76700

== ENCOUNTER → 2021-04-28 | Outpatient (CLI) | payer MEDICAID ==
--- NOTE | 2021-04-28 11:51 | XR ---
EXAMINATION TYPE: XR KUB DATE OF EXAM: 04/28/2021 11:39 AM CLINICAL HISTORY: Bilateral nephrolithiasis TECHNIQUE: Single supine KUB image of the abdomen is obtained. COMPARISON: None. FINDINGS: Scattered gas is seen in non-distended small bowel loops. Gas and fecal material is seen in non-distended colon. There is no visceromegaly, pneumoperitoneum, or abnormal calcification apprecia talat. Surgical clips are seen in the right upper abdomen. IMPRESSION: Overall nonobstructive bowel gas pattern.
== END | disposition home or self-care (01) ==
LOC: RADXRMAIN 11:11
PROVIDERS: ATTEND Urology
DX: N20.1 Calculus of ureter (principal)
CPT/HCPCS: 74018

== ENCOUNTER → 2021-04-29 | Outpatient (CLI) | payer MEDICAID ==
--- NOTE | 2021-04-30 07:21 | US ---
EXAMINATION TYPE: US kidneys/renal and bladder DATE OF EXAM: 04/29/2021 COMPARISON: US 01/07/2021, x-ray 04/28/2021 CLINICAL HISTORY: N20.1 Calculus of ureter. EXAM MEASUREMENTS: Right Kidney: 9.4 x 4.7 x 4.7 cm Left Kidney: 9.8 x 5.0 x 4.8 cm Right Kidney: No hydronephrosis or masses seen. Echogenic medullary pyramids. Left Kidney: No hydronephrosis or masses seen. Echogenic medullary pyramids. Bladder: wnl Bilateral Jets seen: Yes There is no evidence for hydronephrosis at this point in time. No masses are identified. The urinar y bladder is anechoic. Bilateral ureteral jets are seen. IMPRESSION: Echogenic medullary bilateral. Meds are consistent with bilateral medullary nephrocalcinosis, as seen on prior report.
== END | disposition home or self-care (01) ==
LOC: RADUSWWP 15:43
PROVIDERS: ATTEND Urology
DX: E83.59 Other disorders of calcium metabolism (principal); N29 Other disorders of kidney and ureter in diseases classified elsewhere
CPT/HCPCS: 76770

== ENCOUNTER → 2021-07-10 | Outpatient (CLI) | payer MEDICAID ==
--- NOTE | 2021-07-10 09:55 | CT ---
EXAMINATION TYPE: CT abdomen pelvis wo con DATE OF EXAM: 07/10/2021 COMPARISON: 11/30/2019 HISTORY: LUQ pain CT DLP: 720 mGycm Examination of the solid and hollow viscera is limited given the lack of contrast. FINDINGS: LUNG BASES: No evidence for nodule. No evidence for infiltrate. Calcified granuloma left lower lobe LIVER/GB: The gallbladder surgically absent. No space-occupying hepatic lesion. PANCREAS: No pancreatic mass identified. No inflammatory process seen. SPLEEN: No evidence for splenomegaly. No intrasplenic lesions seen. ADRENALS: No adrenal nodules identified. No evidence for thickening. KIDNEYS: No evidence for renal mass. Again noted are changes of the medullary sponge kidney. No hydro nephrosis. BOWEL: Appendix has a normal appearance. No evidence of bowel obstruction. No inflammatory process. Lymph nodes: No evidence for adenopathy greater than 1 cm. Abdominal aorta: Atheromatous changes seen. No evidence for aneurysm. Genital organs: No significant abnormality. Other: No significant abnormality. IMPRESSION: 1. Medullary sponge kidney without evidence for hydronephrosis.
== END | disposition home or self-care (01) ==
LOC: RADCTMAIN 09:32
PROVIDERS: ATTEND Family Medicine
DX: Q61.5 Medullary cystic kidney (principal)
CPT/HCPCS: 74176

== ENCOUNTER → 2022-07-09 | Outpatient (CLI) | payer MEDICAID ==
--- NOTE | 2022-07-09 11:44 | CT ---
EXAMINATION TYPE: CT abdomen pelvis wo con DATE OF EXAM: 07/09/2022 HISTORY: elevated liver enzymes CT DLP: 643 mGycm. Automated Exposure Control for Dose Reduction was Utilized. TECHNIQUE: CT scan of the abdomen and pelvis is performed without oral or IV contrast. COMPARISON: CT a/p dated 07/10/2021. FINDINGS: Within the limitations of a non-contrast study, the following observations are made. LUNG BASES: No significant abnormality is appreciated. LIVER/GB: Cholecystectomy clips are again seen. No new biliary dilatation. PANCREAS: No significant abnormality is seen. SPLEEN: No significant abnormality is seen. ADRENALS: No significant abnormality is seen. KIDNEYS: Hyperdense central pyramids bilaterally are again seen. Tiny bilateral renal calculi redemon strated more numerous in the left kidney versus right kidney lower pole level. No hydronephrosis seen bilaterally. BOWEL: Debris-filled stomach suggests recent meal ingestion. No suspicious small or large bowel dilat ation. GENITAL ORGANS: No gross abnormality seen. LYMPH NODES: No greater than 1cm abdominal or pelvic lymph nodes are appreciated. OSSEOUS STRUCTURES: No significant abnormality is seen. OTHER: No significant additional abnormality is seen. IMPRESSION: No new biliary dilatation. Persistent medullary nephrocalcinosis. No new or acute finding s are evident.
== END | disposition home or self-care (01) ==
LOC: RADCTMAIN 10:01
PROVIDERS: ATTEND Family Medicine
DX: R14.0 Abdominal distension (gaseous) (principal)
CPT/HCPCS: 74176

== ENCOUNTER → 2022-08-03 | Outpatient (CLI) | payer MEDICAID ==
[2022-08-03 23:22] LABS: Basophils # (A) 0.04 X 10*3/uL (0.00-0.10); Basophils % (A) 0.7 %; Eosinophils # (A) 0.14 X 10*3/uL (0.04-0.35); Eosinophils % (A) 2.5 %; HCT 40.5 % (37.2-46.3); HGB 13.6 g/dL (12.0-15.0); Immature Grans, Automated 0.5 %; Lymphocytes # (A) 1.62 X 10*3/uL (0.90-5.00); Lymphocytes % (A) 28.9 %; MCH 30.4 pg (27.0-32.0); MCHC 33.6 g/dL (32.0-37.0); MCV 90.4 fL (80.0-97.0); Mean Platelet Volume 10.7 fL (9.5-12.2); Monocytes # (A) 0.34 X 10*3/uL (0.20-1.00); Monocytes % (A) 6.1 %; NRBC Per 100 WBC 0 /100 WBCS (0.0-0.0); Neutrophils # (A) 3.43 X 10*3/uL (1.80-7.70); Neutrophils % (A) 61.3 %; Platelet Count 215 X 10*3/uL (140-440); RBC 4.48 X 10*6/uL (4.10-5.20); RDW 13.7 % (11.5-14.5)
[2022-08-03 23:42] LABS: % Iron Saturation 25.85 (12.00-45.00); African American GFR (CKD) 84.5 (60.0-200.0); Albumin 4.4 g/dL (3.8-4.9); Albumin/Globulin Ratio 1.86 (1.60-3.17); Anion Gap 10.8 mmol/L (10.00-18.00); BUN/Creat Ratio 10.25 Ratio (12.00-20.00); Blood Urea Nitrogen 10.2 mg/dL (9.0-27.0); Calcium 9.4 mg/dL (8.7-10.3); Carbon Dioxide 25.7 mmol/L (20.0-27.5); Globulin 2.4 g/dL (1.6-3.3); Non-African American GFR(CKD) 72.9 (60.0-200.0); Potassium 4.1 mmol/L (3.5-5.5); Total Bilirubin 0.3 mg/dL (0.30-1.20); Total Protein 6.7 g/dL (6.2-8.2)
[2022-08-04 00:05] LABS: Erythrocyte Sedimentation Rate 6 mm/Hr (0-20)
== END | disposition home or self-care (01) ==
LOC: LABWHC1 14:32
PROVIDERS: ATTEND Family Medicine
DX: D64.9 Anemia, unspecified (principal)
CPT/HCPCS: 36415; 80053; 83540; 83550; 85025; 85652

== ENCOUNTER → 2023-03-08 | Outpatient (CLI) | payer MEDICAID ==
[2023-03-08 17:36] LABS: HCT 41.2 % (34.0-46.0); MCH 30.8 pg (25.0-35.0); MCV 90.4 fL (80.0-100.0); Mean Platelet Volume 8.1; Platelet Count 269 k/uL (150-450); RBC 4.56 m/uL (3.80-5.40); RDW 12.9 % (11.5-15.5); WBC 6.4 k/uL (3.8-10.6)
[2023-03-08 17:46] LABS: African American GFR (CKD) 67 (>60 ml/min/1.73 sqM); Anion Gap 7 mmol/L; Blood Urea Nitrogen 14 mg/dL (7-17); Calcium 9.4 mg/dL (8.4-10.2); Carbon Dioxide 27 mmol/L (22-30); Chloride 103 mmol/L (98-107); Glucose 92 mg/dL (74-99); Non-African American GFR(CKD) 58 (>60 ml/min/1.73 sqM); Potassium 4.4 mmol/L (3.5-5.1); Sodium 137 mmol/L (137-145)
== END | disposition home or self-care (01) ==
LOC: LABWHC1 15:28
PROVIDERS: ATTEND Internal Medicine Cardiovascular Disease
DX: Z01.810 Encounter for preprocedural cardiovascular examination (principal); I31.9 Disease of pericardium, unspecified; I42.9 Cardiomyopathy, unspecified
CPT/HCPCS: 36415; 80048; 85027

== ENCOUNTER → 2023-09-27 | Outpatient (CLI) | payer MEDICAID ==
--- NOTE | 2023-09-28 23:51 | MM ---
Reason for Exam: Screening (asymptomatic). Baseline mammogram. Patient History: Menarche at age 14. First Full-Term at age 25. Premenopausal. Patient has history of breast feeding. Mother had breast cancer under age 50. Last menstrual period: 09/27/2023 Risk Values: Pau 5 year model risk: 0.8%. NCI Lifetime model risk: 17.4%. Prior Study Comparison: Patient's first Mammogram. Tissue Density: The breast tissue is heterogeneously dense. This may lower the sensitivity of mammography. Findings: Analyzed By CAD. No significant mass, suspicious microcalcification, or other discrete abnormality is seen. Overall Assessment: Negative, BI-RAD 1 Management: Screening Mammogram of both breasts in 1 year. . Patient should continue monthly self-breast exams. A clinical breast exam by your physician is recommended on an annual basis. This exam should not preclude additional follow-up of suspicious palpable abnormalities. Note on Pau scores and lifetime risk: 1. A Pau score greater than 3% is considered moderate risk. If this is the case, consider specialist referral to assess eligibility for a risk reducing agent. 2. If overall lifetime risk for the development of breast cancer is 20% or higher, the patient may qualify for future screening with alternating mammogram and breast MRI. Electronically signed and approved by: Migdalia Connelly M.D. Radiologist
== END | disposition home or self-care (01) ==
LOC: RADMAMWWP 09:41
PROVIDERS: ATTEND Family Medicine
DX: Z12.31 Encounter for screening mammogram for malignant neoplasm of breast (principal); Z80.3 Family history of malignant neoplasm of breast
CPT/HCPCS: 77063; 77067

== ENCOUNTER → 2023-10-27 | Outpatient (CLI) | payer MEDICAID ==
--- NOTE | 2023-10-27 19:23 | US ---
EXAMINATION TYPE: US groin RT DATE OF EXAM: 10/27/2023 COMPARISON: 07/09/2022. CLINICAL INDICATION: Female, 38 years old with history of R59.0 LOCALIZED ENLARGED LYMPH NODES; Palpa ble area right suprapubic area for 1 month TECHNIQUE: Grayscale imaging of the right colon. FINDINGS: Scanned within patient's area of concern, right suprapubic area, hypoechoic lesion superio r to bladder = 1.1 x 0.9 x 1.1cm lymph node right groin = 1.4 x 0.3 x 1.0cm IMPRESSION: Nonspecific hypoechoic solid mass in the area of patient's groin which does not have the typical morphology of a lymph node. This may been present on prior CT and measures up to 9 mm. Corre late for history of surgical intervention. Consider tissue sampling and/or short-term follow-up.
== END | disposition home or self-care (01) ==
LOC: RADUSWWP 13:43
PROVIDERS: ATTEND Family Medicine
DX: R22.41 Localized swelling, mass and lump, right lower limb (principal)

== ENCOUNTER → 2024-07-19 | Outpatient (CLI) | payer MEDICAID ==
[2024-07-19 15:19] LABS: Basophils # (A) 0.06 X 10*3/uL (0.00-0.10); Eosinophils # (A) 0.16 X 10*3/uL (0.04-0.35); Eosinophils % (A) 2.7 %; HCT 42.9 % (37.2-46.3); HGB 14.5 g/dL (12.0-15.0); Lymphocytes # (A) 1.29 X 10*3/uL (0.90-5.00); Lymphocytes % (A) 22.1 %; MCH 31.2 pg (27.0-32.0); MCHC 33.8 g/dL (32.0-37.0); MCV 92.3 FL (80.0-97.0); Mean Platelet Volume 10.8 FL (9.5-12.2); Monocytes # (A) 0.39 X 10*3/uL (0.20-1.00); Monocytes % (A) 6.7 %; NRBC Per 100 WBC 0 X 10*3/uL (0.00-0.01); Neutrophils # (A) 3.93 X 10*3/uL (1.80-7.70); Neutrophils % (A) 67.2 %; Platelet Count 276 X 10*3/uL (140-440); RBC 4.65 X 10*6/uL (4.10-5.20); RDW 12.2 % (11.5-14.5); WBC 5.85 X 10*3/uL (4.50-10.00)
[2024-07-19 15:40] LABS: ALT 20 U/L (8-44); AST 21 U/L (13-35); Albumin 4.3 g/dL (3.8-4.9); Albumin/Globulin Ratio 1.65 Ratio (1.60-3.17); Alkaline Phosphatase 74 U/L (41-126); Amylase 85 U/L (23-121); BUN/Creat Ratio 10.33 Ratio (12.00-20.00); Blood Urea Nitrogen 9.3 mg/dL (9.0-27.0); Chloride 103 mmol/L (96-109); Globulin 2.6 g/dL (1.6-3.3); Glucose 86 mg/dL (70-110); Lipase 52 U/L (14-63); Potassium 4.1 mmol/L (3.5-5.5); Sodium 139 mmol/L (135-145); Total Bilirubin <0.2 mg/dL (0.3-1.2); Total Protein 6.9 g/dL (6.2-8.2)
[2024-07-19 18:23] LABS: Gliadin AB IgA, Deaminated Negative (Negative); Gliadin AB IgG, Deaminated Negative (Negative); Gliadin AB IgG, Unit <0.4 U/mL
[2024-07-19 19:21] LABS: Immunoglobulin E <5.00 IU/mL (0.00-114.00)
[2024-07-19 19:29] LABS: Egg White IgE <0.10 kU/L; Peanut IgE <0.10 kU/L; Soybean IgE <0.10 kU/L; Walnut IgE (Food) <0.10 kU/L
[2024-07-20 07:27] LABS: Cryptosporidium Antigen Negative (Negative)
[2024-07-20 12:27] LABS: Egg Yolk IgE Class CLASS 0
== END | disposition home or self-care (01) ==
LOC: LABWHC1 10:08
PROVIDERS: ATTEND Nurse Practitioner Adult Health
DX: R19.7 Diarrhea, unspecified (principal); Z91.018 Allergy to other foods
CPT/HCPCS: 36415; 80053; 82150; 82785; 83516; 83690; 85025; 86003; 87045; 87046; 87328; 87329; 87338

== ENCOUNTER → 2024-07-27 | Outpatient (CLI) | payer MEDICAID ==
--- NOTE | 2024-07-27 23:33 | CT ---
EXAMINATION TYPE: CT abdomen pelvis wo con DATE OF EXAM: 07/27/2024 HISTORY: abnormal ultrasound/ diarrhea CT DLP: 306.9 mGycm. Automated Exposure Control for Dose Reduction was Utilized. TECHNIQUE: CT scan of the abdomen and pelvis is performed without oral or IV contrast. COMPARISON: Prior CT July 09, 2022 FINDINGS: Within the limitations of a non-contrast study, the following observations are made. LUNG BASES: No significant abnormality is appreciated. LIVER/GB: Cholecystectomy clips are again seen. No new biliary dilatation. PANCREAS: No significant abnormality is seen. SPLEEN: No significant abnormality is seen. ADRENALS: No significant abnormality is seen. KIDNEYS: Hyperdense central pyramids bilaterally are again seen. Tiny lower pole left renal calculus coronal image 38. No hydronephrosis there is seen bilaterally. BOWEL: No abnormal small or large bowel dilatation. No significant colonic fecal prominence. GENITAL ORGANS: No gross abnormality seen. LYMPH NODES: No greater than 1cm abdominal or pelvic lymph nodes are appreciated. OSSEOUS STRUCTURES: No significant abnormality is seen. OTHER: No significant additional abnormality is seen. IMPRESSION: No bowel obstruction. No significant colonic fecal prominence and/or constipation. Persis tent medullary nephrocalcinosis is noted. [facility], , 07/27/2024 11:30 PM
== END | disposition home or self-care (01) ==
LOC: RADCTMAIN 15:53
PROVIDERS: ATTEND Family Medicine
DX: R19.7 Diarrhea, unspecified
CPT/HCPCS: 74176

== ENCOUNTER → 2025-03-08 | Outpatient (CLI) | payer MEDICAID ==
[2025-03-09 01:57] LABS: Basophils # (A) 0.06 X 10*3/uL (0.00-0.10); Basophils % (A) 0.8 %; Eosinophils # (A) 0.18 X 10*3/uL (0.04-0.35); Eosinophils % (A) 2.5 %; HGB 14.3 g/dL (12.0-15.0); Lymphocytes # (A) 1.96 X 10*3/uL (0.90-5.00); Lymphocytes % (A) 27.3 %; MCH 31.1 pg (27.0-32.0); MCV 91.3 FL (80.0-97.0); NRBC Per 100 WBC 0 X 10*3/uL (0.00-0.01); Neutrophils # (A) 4.46 X 10*3/uL (1.80-7.70); Neutrophils % (A) 62.1 %; Platelet Count 262 X 10*3/uL (140-440); RDW 12.4 % (11.5-14.5); WBC 7.18 X 10*3/uL (4.50-10.00)
[2025-03-09 02:06] LABS: Erythrocyte Sedimentation Rate 10 mm/Hr (0-20)
== END | disposition home or self-care (01) ==
LOC: LABWHC1 14:59
PROVIDERS: ATTEND Family Medicine
DX: L28.2 Other prurigo (principal)
CPT/HCPCS: 36415; 85025; 85652; 86038; 86140

== ENCOUNTER → 2025-04-15 | Outpatient (CLI) | payer MEDICAID | END | disposition home or self-care (01) | LOC: LABWHC1 15:08 | PROVIDERS: ATTEND Dentist Periodontics | DX: E55.9 Vitamin D deficiency, unspecified (principal) | CPT/HCPCS: 36415; 82306 ==